=== PATIENT | male | born 1960 | race American Indian/Alaskan Native ===

== ENCOUNTER 2017-03-23 21:06 | Inpatient (IN) | payer OTHER ==
[2017-03-23] MEDS ORDERED: Iodixanol 320 MG/ML 100 ML BOTTLE IV ONE (21:16)
--- NOTE | 2017-03-23 21:36 | CT ---
EXAM: CT Head Without Intravenous Contrast EXAM DATE/TIME: 03/23/2017 9:08 PM CLINICAL HISTORY: 56 years old, male; Signs and symptoms; Alteration of consciousness; Transient alteration of awareness; Additional info: Code stroke TECHNIQUE: Axial computed tomography images of the head/brain without intravenous contrast. All CT scans at this facility use one or more dose reduction techniques, viz.: automated exposure control; ma/kV adjustment per patient size (including targeted exams where dose is matched to indication; i.e. head); or iterative reconstruction technique. COMPARISON: There are no prior studies for comparison. FINDINGS: Brain: Ventricles are normal in size and configuration. There is no midline shift. There is decrease attenuation in periventricular white matter. There is subtle decreased attenuation in the basal ganglia bilaterally left greater than right. There are no intra-axial or extra-axial mass lesions or hemorrhages. There are no abnormal fluid collections. Smith-white differentiation is maintained. Ventricles: See above. Bones: Cranial vault is intact. Soft tissues: There is minimal right frontal scalp swelling. Sinuses: There is no acute sinusitis. Ears and mastoids: Middle ears and mastoids are unremarkable Orbits: Orbital contents are unremarkable. IMPRESSION: Small vessel disease; age indeterminate decreased attenuation in basal ganglia; no bleed
[2017-03-23 21:44] LABS: BASO # 0.03 K/mm3 (0.0-2.0); BASO % 0.4 % (0.0-3.0); EOS % 0.2 % (1.5-5.0); GRAN # 6.68 (1.4-6.5); GRAN % 80.5 % (50.0-68.0); HEMATOCRIT 44.9 % (42.0-52.0); LYMPH # 1.1 (1.2-3.4); MEAN CORPUSCULAR HEMOGLOBIN 30.7 pg (25.0-35.0); MEAN CORPUSCULAR HGB CONC 34.1 g/dl (31.0-37.0); MONO # 0.5 (0.1-0.6); MONO % 5.9 % (1.0-6.0); RED CELL DISTRIBUTION WIDTH 13.3 % (11.5-14.5); WHITE BLOOD COUNT 8.3 10^3/ul (4.5-11.0)
[2017-03-23 21:55] LABS: ALB/GLOB RATIO 1.4 (1.1-1.8); ALKALINE PHOSPHATASE 60 U/L (38-126); ALT/SGPT 25 U/L (7-56); AST/SGOT 34 U/L (17-59); BILIRUBIN,TOTAL 0.7 mg/dL (0.2-1.3); BLOOD UREA NITROGEN 20 mg/dL (7-21); CALCIUM 9.4 mg/dL (8.4-10.5); CARBON DIOXIDE 19 mmol/L (21-33); CHLORIDE 105 mmol/L (98-107); CHOLESTEROL 217 mg/dL (130-200); GFR AFRICAN-AMERICAN 58; GLUCOSE,RANDOM 108 mg/dL (70-110); INR 1.06 (0.93-1.08); PARTIAL THROMBOPLASTIN TIME 25.6 Seconds (23.7-30.8); POTASSIUM 3.8 mmol/L (3.6-5.0); SODIUM 144 mmol/L (132-148); TOTAL PROTEIN 8.3 g/dL (5.8-8.3)
[2017-03-23 22:09] LABS: TROPONIN I < 0.01 ng/mL
--- NOTE | 2017-03-23 22:28 | EDPD ---
HPI Stroke - General Time Seen by Provider: 03/23/17 21:07 Chief Complaint: Weakness/Neurological Deficit Historian: Patient - History of Present Illness Narrative History of Present Illness (Free Text): 03/23/17 21:30 56 year old male, who denies any past medical history, presents to the emergency department by EMS in sudden onset left arm and left leg weakness began at 8:30pm. Patient states he was sitting at a restaurant and eating when symptoms began. Patient denies any trauma, chest pain, shortness of breath, blurry double vision, fever, chills, chest pain, shortness of breath, nausea, vomiting, diarrhea, urinary symptoms, back pain, neck pain, headache, dizziness , or any other complaints. Onset:: Sudden Context: Sitting (out at a reaturant eating ) Associated Symptoms: other (left arm and left leg weakness ) Relieved by: Nothing - Location Location: None Locate Right: Upper extremity (left arm weakness) Locate Left: Lower extremity (left leg weakness) rTPA Inclusion/Exclusion - Refusal of Treatment Patient Refused Treatment: No - Inclusion Criteria for Altepase Patient is 18 years or Older: Yes The Clinical Diagnosis of Ischemic Stroke That is Causing a Potentially Disabling Neurological Deficit: Yes Time of Onset is Well Established to be Less Than 270 Minute Before Treatment Would Begin: Yes Risk/Benefit Discussed With Patient/Family Member Present: Yes - Exclusion Criteria for Altepase Uncontrolled Hypertension at Time of Treatment (Systolic BP above 185 or Diastolic BP above 110 mmHg): No Past Medical History - Provider Review Nursing Documentation Reviewed: Yes - Psychiatric Hx Substance Use: No Family/Social History - Dr. Swan Nursing documentation reviewed.: Yes Allergies/Home Meds Allergies/Adverse Reactions: Allergies No Known Allergies Allergy (Verified 03/23/17 21:08) Home Medications: Home Meds Medication Instructions Recorded Confirmed No Known Home Med 03/23/17 03/23/17 Review of Systems - Physician Review All systems were reviewed & negative as marked: Yes - Review of Systems Constitutional: absent: Fevers, Other (Chills) Eyes: absent: Vision Changes (- blurry double vision ) Respiratory: absent: SOB Cardiovascular: absent: Chest Pain Gastrointestinal: absent: Diarrhea, Nausea, Vomiting Genitourinary Male: absent: Dysuria, Frequency, Hematuria Musculoskeletal: absent: Back Pain, Neck Pain Neurological: Other (left arm and left leg weakness ). absent: Headache, Dizziness ED Stroke Physical Exam Vital Signs Reviewed: Yes Vital Signs Temp Pulse Resp BP Pulse Ox 03/23/17 22:21 96 H 18 160/94 H 100 03/23/17 22:10 86 18 168/94 H 99 03/23/17 22:00 78 18 166/98 H 99 03/23/17 21:51 84 18 168/102 H 99 03/23/17 21:42 98.9 F 88 16 174/92 H 99 03/23/17 21:06 98.9 F 77 12 182/112 H 100 Temperature: Afebrile Blood Pressure: Hypertensive Pulse: Regular Respiratory Rate: Normal Appearance: Positive for: Well-Appearing, Non-Toxic, Comfortable Pain Distress: None Mental Status: Positive for: Alert and Oriented X 3 Finger Stick Blood Glucose: 118 - Systems Exam Head: Present: Atraumatic, Normocephalic, Other (slight facial asymmetric noted ) Pupils: Present: PERRL Extroacular Muscles: Present: EOMI Conjunctiva: Present: Normal Mouth: Present: Moist Mucous Membranes Neck: Present: Normal Range of Motion Respiratory/Chest: Present: Clear to Auscultation, Good Air Exchange. No: Respiratory Distress, Accessory Muscle Use Cardiovascular: Present: Regular Rate and Rhythm, Normal S1, S2. No: Murmurs Abdomen: Present: Normal Bowel Sounds. No: Tenderness, Distention, Peritoneal Signs Back: Present: GCS, CN, SP Upper Extremity: Present: Other (left upper extremity ab duction, no saturator tender strenfth left hand, minimal flection of the upper shoulder). No: Cyanosis, Edema Lower Extremity: Present: Other (Decreased left leg raise). No: Edema Neurologic: Present: Normal Sensory Function Skin: Present: Warm, Dry, Normal Color. No: Rashes Lymphatic: Present: OX3, NI, NC Psychiatric: Present: Alert, Oriented x 3, Normal Insight, Normal Concentration Medical Decision Making ED Course and Treatment: 03/23/17 21:28 Impression: 56 year old male presents onset left arm and leg weakness that began at 8:30PM. Plan: -- CT Head and Neck Bundle -- CT Head -- EKG -- Labs -- Chest X-ray -- Activase 100mg Inj -- Reassess and disposition Progress Notes: EKG shows Sinus Tachycardia at 146 BPM with wide axis deviation. Interpreted by me. CXR Impression: As read by me, no acute processes. EXAM: CT Head Without Intravenous Contrast Dictated and Authenticated by: Marcelina Sierra MD 03/23/2017 9:36 PM IMPRESSION: Small vessel disease; age indeterminate decreased attenuation in basal ganglia; no bleed EXAM:CT Angiography Head With Intravenous Contrast Dictated and Authenticated by: Lucia Valencia MD 03/23/2017 10:35 PM IMPRESSION: Tortuous basilar artery. No acute vascular occlusion identified EXAM:CT Angiography Neck With Intravenous Contrast Dictated and Authenticated by: Lucia Valencia MD 03/23/2017 10:35 PM IMPRESSION: No acute findings. Spoke to Dr. Maegan Vieira and reviewed case before and after CT scan and recommended tPA and admission to ICU. Discussed case with Dr. [place] the clock maker who is aware and agrees with the plan. Accepts patients into service. Patient will be admitted to ICU. - Lab Interpretations Lab Results: 03/23/17 21:30 03/23/17 21:30 Lab Results 03/23/17 21:30: Blood Type B POSITIVE, Antibody Screen Negative, BBK History Checked No verified bt 03/23/17 21:30: Sodium 144, Potassium 3.8, Chloride 105, Carbon Dioxide 19 L, Anion Gap 24 H, BUN 20, Creatinine 1.5 H, Est GFR ( Amer) 58, Est GFR ( Non-Af Amer) 48, Random Glucose 108, Calcium 9.4, Total Bilirubin 0.7, AST 34, ALT 25, Alkaline Phosphatase 60, Troponin I < 0.01, Total Protein 8.3, Albumin 4.9 H, Globulin 3.5, Albumin/Globulin Ratio 1.4, Triglycerides 74, Cholesterol 217 H, LDL Cholesterol Direct 105, HDL Cholesterol 118 H 03/23/17 21:30: PT 11.4, INR 1.06, APTT 25.6 03/23/17 21:30: WBC 8.3, RBC 4.99, Hgb 15.3, Hct 44.9, MCV 90.0, MCH 30.7, MCHC 34.1, RDW 13.3, Plt Count 315, MPV 10.0, Gran % 80.5 H, Lymph % (Auto) 13.0 L, [place] % (Auto) 5.9, Eos % (Auto) 0.2 L, Baso % (Auto) 0.4, Gran # 6.68 H, Lymph # 1.1 L, [place]he # 0.5, Eos # 0.0, Baso # 0.03 I have reviewed the lab results: Yes - RAD Interpretation Radiology Orders: 03/23/17 21:08 HEAD W/O (CODE STROKE) [CT] Stat 03/23/17 21:10 CHEST PORTABLE [RAD] Stat 03/23/17 21:30 CTA HEAD & NECK BUNDLE [CT] Stat - EKG Interpretation Interpreted by ED Physician: Yes Type: 12 lead EKG - Medication Orders Current Medication Orders: Discontinued Medications Alteplase, Recombinant (Activase 100 Mg Inj) 63.5 mg IV ONCE ONE Stop: 03/23/17 21:46 Last Admin: 03/23/17 22:07 Dose: 63.5 mg eMAR Start Stop Document 03/23/17 22:07 OCS (Rec: 03/23/17 22:07 OCS [id number]) Intravenous Solution Start Date 03/23/17 Start Time 22:05 Alteplase, Recombinant (Activase 100 Mg Inj) 7.06 mg IV ONCE ONE Stop: 03/23/17 21:46 Last Admin: 03/23/17 22:05 Dose: 7.06 mg eMAR Start Stop Document 03/23/17 22:05 OCS (Rec: 03/23/17 22:09 OCS [id number]) Intravenous Solution Start Date 03/23/17 Start Time 22:05 Iodixanol (Visipaque 320 Mg/Ml 100 Ml) Confirm Administered Dose 100 ml IV .STK- MED ONE Stop: 03/23/17 21:17 - Scribe Statement The provider has reviewed the documentation as recorded by the Scribe Lenard Orellana All medical record entries made by the Scribe were at my direction and personally dictated by me. I have reviewed the chart and agree that the record accurately reflects my personal performance of the history, physical exam, medical decision making, and the department course for this patient. I have also personally directed, reviewed, and agree with the discharge instructions and disposition. NIHSS Scale ([place]) Time Performed: 21:05 - How Severe is the Stoke Baseline Level of Consciousness: 0=Alert LOC to Questions: 0=Both comments correct LOC to commands: 0=Obeys both correctly Best Gaze: 0=Normal Visual: 0=No visual loss Facial: 1=Minor asymmetry Motor Arm - Left: 3=No effort against gravity (falls immediately) Motor Arm - Right: 0=No drift Motor Leg - Left: 2=Falls before 5 sec Motor Leg - Right: 0=No drift Limb Ataxia: 0=Absent Sensory: 0=Normal Best Language: 0=No aphasia Dysarthia: 0=Normal articulation Extinction & Inattention (Neglect): 0=Normal, no object Score: 6 Risk Level: Mod Stroke Risk Disposition/Present on Arrival - Present on Arrival Any Indicators Present on Arrival: No History of DVT/PE: No History of Uncontrolled Diabetes: No Urinary Catheter: No History of Decub. Ulcer: No History Surgical Site Infection Following: None - Disposition Have Diagnosis and Disposition been Completed?: Yes Diagnosis: Ischemic stroke, Received intravenous tissue plasminogen activator (tPA) in emergency department Disposition: HOSPITALIZED Disposition Time: 22:10 Patient Plan: Admission, ICU Condition: CRITICAL ED Critical Care Documentation - Critical Care Total Time (mins): 60 Documented critical care: time excludes all time spent performing seperately billable procedures.
--- NOTE | 2017-03-23 22:35 | CT ---
EXAM: CT Angiography Head With Intravenous Contrast CLINICAL HISTORY: 56 years old, male; Signs and symptoms; Cognitive deficit; Altered mental status; Additional info: CVA TECHNIQUE: Axial computed tomographic angiography images of the head with intravenous contrast using CT angiography protocol. All CT scans at this facility use one or more dose reduction techniques, viz.: automated exposure control; ma/kV adjustment per patient size (including targeted exams where dose is matched to indication; i.e. head); or iterative reconstruction technique. MIP reconstructed images were created and reviewed. Coronal and sagittal reformatted images were created and reviewed. CONTRAST: 100 mL of VISIPAQUE 320 administered intravenously. COMPARISON: No relevant prior studies available. FINDINGS: The vertebral arteries are patent bilaterally. The basilar artery is tortuous although patent without significant stenosis or occlusion. The posterior cerebral arteries are patent. The P2 segment of the right posterior cerebral artery is largely supplied by the posterior communicating artery. The visualized internal carotid arteries are normal. The anterior and middle cerebral arteries are patent. Mild sinus disease. IMPRESSION: Tortuous basilar artery. No acute vascular occlusion identified EXAM: CT Angiography Neck With Intravenous Contrast EXAM DATE/TIME: 03/23/2017 9:10 PM CLINICAL HISTORY: 56 years old, male; Signs and symptoms; Cognitive deficit; Altered mental status; Additional info: CVA TECHNIQUE: Axial computed tomographic angiography images of the neck with intravenous contrast using CT angiography protocol. All CT scans at this facility use one or more dose reduction techniques, viz.: automated exposure control; ma/kV adjustment per patient size (including targeted exams where dose is matched to indication; i.e. head); or iterative reconstruction technique. MIP reconstructed images were created and reviewed. Coronal and sagittal reformatted images were created and reviewed. CONTRAST: 100 mL of VISIPAQUE 320 administered intravenously. COMPARISON: CT - HEAD W/O (CODE STROKE) 03/23/2017 9:04:53 PM FINDINGS: The common carotid arteries are normal bilaterally without significant stenosis or occlusion. The visualized internal carotid arteries are normal without significant stenosis or occlusion. The vertebral arteries are normal without evidence of stenosis or occlusion. The soft tissues of the neck appear normal. The airway is patent. Minimal degenerative changes C5-6. IMPRESSION: No acute findings.
--- NOTE | 2017-03-23 23:36 | CP.PCM.HP ---
<Vika Charles - Last Filed: 03/23/17 23:33> History of Present Illness - History of Present Illness History of Present Illness: CC: " I felt numb in my left upper and lower extremity". Patient is a 56 y/o M with PMH of 40 pack a year history, alcohol abuse presenting with numbness and weakness of the left upper and lower extremities. Patient states today [place], he felt numb in his left upper extremity and lower extremity, accompanied by weakness, diaphoresis and shaking of his right upper extremity. Patient states he felt like falling, but didn't fall, denies LOC, denies headache during the episode. Patient states he got out of the train and while walking down the stairs he felt diaphoretic again with shakes, and had bowel incontinent, denies urine incontinence. Patient states he went to a [employer] store to clean himself up, and then headed to a restaurant for his baby's shower. While in the restaurant, he had difficulty feeding himself, that's when his girlfriend called 9:11. Furthermore, patient added he had headache on/off for the past few days, temporarly releived with OTC NSAIDS. However no headaches today. Patient also states his BP is usually "a little" high, however patient has never seen a doctor for it. Last time patient saw a doctor was for a dental work , which was months ago. Patient states prior to this he has no difficulties ambulating, no dyspnea on exertion, no chest pain, no SOB, was never told he had any childhood heart defect, doesn't know if anyone in the family has hypercoagulable disease. Patient denies any prior histories of seizures or strokes. In the ED, patient had 0/5 motor strength and ROM in the upper left extremity and left drip on the left lower extremities. BP was 182/112. Code stroke was activated, patient had CT head w/o contrast demonstrating small vessel disease, age indeterminate decreased attenuation in the basal ganglia. ED contacted Dr Rivera, and recommended TPA. Patient also had CTA head and neck, and as per Dr Farooq, video images of the CT were sent to [facility] for possible coiling, however was deemed to be likely due to small vessel disease. Patient to be admitted to ICU for further monitoring. On ekg, patient was NSR, with LVH, and LAE. PMH: Denies PSH: Denies FMH: mom and dad are , not sure if they had any illnesses. Social: 40 pack a year history, drinks 1 pint of ryan a day, all his life, last drink was yesterday. Denies illicit drug use. 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 Allergy: Denies Home meds: Denies. Present on Admission - Present on Admission Any Indicators Present on Admission: No History of DVT/PE: No History of Uncontrolled Diabetes: No Urinary Catheter: No Decubitus Ulcer Present: No Review of Systems - Constitutional Constitutional: Chills, Fatigue, Lethargy, Weakness. absent: Fever, Frequent Falls, Headache, Night Sweats, Snoring, Sleep Apnea - EENT Eyes: absent: Blurred Vision, Change in Vision, Pain, Sees Flashes, Spots in Vision, Loss of Vision Ears: Disequilibrium, Dizziness. absent: Decreased Hearing, Tinnitus Nose/Mouth/Throat: absent: Change in Voice, Sore Throat - Cardiovascular Cardiovascular: Lightheadedness. absent: Chest Pain, Chest Pain at Rest, Chest Pain with Activity, Claudication, Dyspnea, Edema, Leg Edema, Palpitations, Paroxysmal Nocturnal Dyspnea, Pedal Edema, Rapid Heart Rate, Slow Heart Rate, Syncope - Respiratory Respiratory: absent: Cough, Wheezing, Snoring, Stridor, Chest Congestion, Excessive Mucous Production - Gastrointestinal Gastrointestinal: absent: Abdominal Pain, Bloating, Constipation, Nausea, Vomiting - Genitourinary Genitourinary: absent: Dysuria, Hematuria, Urinary Hesitance, Urinary Urgency, Freq UTI - Musculoskeletal Musculoskeletal: Abnormal Gait, Limited Range of Motion, Muscle Weakness, Numbness, Tingling. absent: Atrophy, Back Pain, Muscle Cramps, Stiffness - Integumentary Integumentary: Dry Skin. absent: Skin Pain, Wounds - Neurological Neurological: Abnormal Movements, Disequilibrium, Dizziness, Numbness, Focal Weakness, Lack of Coordination, Sensory Deficit, Tingling, Weakness. absent: Abnormal Hearing, Abnormal Speech, Behavioral Changes, Confusion, Convulsions, Frequent Falls, Headaches, Loss of Vision, Memory Loss, Paresthesias, Radicular Pain, Restless Legs, Syncope, Tremor, Vertigo - Psychiatric Psychiatric: absent: Anxiety, Confusion, Depression - Endocrine Endocrine: Fatigue. absent: Change in Body Appearance, Palpitations - Hematologic/Lymphatic Hematologic: absent: Lymphadenopathy Past Patient History - Infectious Disease Hx of Infectious Diseases: None - Tetanus Immunizations Tetanus Immunization: Unknown - Past Medical History & Family History Past Medical History?: Yes - Past Social History Smoking Status: Heavy Smoker > 10 Cigarettes Daily Alcohol: > 2 Drinks/Day Drugs: Denies Home Situation {Lives}: Alone - PSYCHIATRIC Hx Substance Use: No Meds Allergies/Adverse Reactions: Allergies Allergy/AdvReac Type Severity Reaction Status Date / Time No Known Allergies Allergy Verified 03/23/17 21:08 Physical Exam - Constitutional Appears: No Acute Distress - Head Exam Head Exam: ATRAUMATIC, NORMAL INSPECTION, NORMOCEPHALIC - Eye Exam Eye Exam: EOMI, Normal appearance, PERRL. absent: Nystagmus, Scleral icterus Pupil Exam: Irregular, NORMAL ACCOMODATION, Unequal (left sided droop. gaze is downward and in.). absent: Miosis, Mydriatic (on the right, abnormal accomodation on the left. ) - ENT Exam ENT Exam: Mucous Membranes Moist - Neck Exam Neck exam: Positive for: Full Rom, Normal Inspection. Negative for: Lymphadenopathy, Meningismus, Tenderness, Thyromegaly - Respiratory Exam Respiratory Exam: Clear to Auscultation Bilateral, NORMAL BREATHING PATTERN. absent: Rales, Rhonchi, Wheezes, Respiratory Distress, Stridor - Cardiovascular Exam Cardiovascular Exam: REGULAR RHYTHM, RRR, +S1, +S2. absent: Bradycardia, Tachycardia, Gallop, Irregular Rhythm, JVD, Rubs, Systolic Murmur - GI/Abdominal Exam GI & Abdominal Exam: Normal Bowel Sounds, Soft. absent: Diminished Bowel Sounds , Distended, Firm, Guarding, Hernia, Pulsatile Mass, Rebound, Tenderness - Extremities Exam Extremities exam: Positive for: normal inspection, pedal pulses present. Negative for: pedal edema, tenderness - Back Exam Back exam: NORMAL INSPECTION. absent: paraspinal tenderness, rash noted, tenderness - Neurological Exam Neurological exam: Alert, Oriented x3, Reflexes Normal Additional comments: Patient is alert and awake, able to speak in full sentences, able to respond to all the questions. and is a&ox3. + Facial asymmetry, masseter muscle is strong b/l. + left sided facial droop, decreased in sensation on the left forehead, and right lower face. Normal sensation on the right upper face and left lower face. No tongue atrophy, + tongue deviation to the right. + left sided peripheral visual field defect. Diminished sensation to dull and sharp objects on the left upper and left lower extremities. Normal on the right. Negative babinski. 1/5 Motor strength and ROM on the left upper extremities, normal 5/5 on the right. + Pronator drift after 10 sec on the left, normal on the right. Reflexes are brisk throughout. No tremors noted, no muscle rigidity. - Psychiatric Exam Psychiatric exam: Normal Affect, Normal Mood - Skin Skin Exam: Dry, Warm Additional comments: Old abrasions on the bid toes. Results - Vital Signs Recent Vital Signs: Last Vital Signs Temp 98.9 F 03/23/17 21:42 Pulse 92 H 03/23/17 22:59 Resp 18 03/23/17 22:59 BP 168/98 H 03/23/17 22:59 Pulse Ox 99 03/23/17 22:59 - Labs Result Diagrams: 03/23/17 21:30 03/23/17 21:30 Labs: Laboratory Results - last 24 hr 03/23/17 03/23/17 03/23/17 10:35 21:30 21:30 WBC 8.3 RBC 4.99 Hgb 15.3 Hct 44.9 MCV 90.0 MCH 30.7 MCHC 34.1 RDW 13.3 Plt Count 315 MPV 10.0 Gran % 80.5 H Lymph % (Auto) 13.0 L [place] % (Auto) 5.9 Eos % (Auto) 0.2 L Baso % (Auto) 0.4 Gran # 6.68 H Lymph # 1.1 L [place] # 0.5 Eos # 0.0 Baso # 0.03 PT 11.4 INR 1.06 APTT 25.6 Sodium Potassium Chloride Carbon Dioxide Anion Gap BUN Creatinine Est GFR ( Amer) Est GFR (Non-Af Amer) Random Glucose Calcium Total Bilirubin AST ALT Alkaline Phosphatase Troponin I Total Protein Albumin Globulin Albumin/Globulin Ratio Triglycerides Cholesterol LDL Cholesterol Direct HDL Cholesterol Blood Type Blood Type Confirm B POSITIVE Antibody Screen BBK History Checked 03/23/17 03/23/17 21:30 21:30 WBC RBC Hgb Hct MCV MCH MCHC RDW Plt Count MPV Gran % Lymph % (Auto) [place] % (Auto) Eos % (Auto) Baso % (Auto) Gran # Lymph # [place] # Eos # Baso # PT INR APTT Sodium 144 Potassium 3.8 Chloride 105 Carbon Dioxide 19 L Anion Gap 24 H BUN 20 Creatinine 1.5 H Est GFR ( Amer) 58 Est GFR (Non-Af Amer) 48 Random Glucose 108 Calcium 9.4 Total Bilirubin 0.7 AST 34 ALT 25 Alkaline Phosphatase 60 Troponin I < 0.01 Total Protein 8.3 Albumin 4.9 H Globulin 3.5 Albumin/Globulin Ratio 1.4 Triglycerides 74 Cholesterol 217 H LDL Cholesterol Direct 105 HDL Cholesterol 118 H Blood Type B POSITIVE Blood Type Confirm Antibody Screen Negative BBK History Checked No verified bt Assessment & Plan - Assessment and Plan (Free Text) Assessment: 56 y/o with h/o alcohol abuse and heavy tobacco abuse brought in by EMS with weakness and numbness of the left upper and lower extremities. Patient was suspected to have stroke, code stroke was called, CT head w/o contrast was negative for hemorrhage. Patient was giving TPA with some improvement in the extremities ROM and is currently being transferred to ICU for further monitoring. Plan: 1) Left upper and lower extremities weakness likely ischemic CVA 2nd to uncontrolled hypertension. - R/O Seizure disorders, Pablo's paralysis - Less likely bacterial encephalitis, no AMS, no fevers, wbc normal. - R/o Wernicke's encephalitis, r/o hyperkalemic periodic paralysis - CT head revealing age indeterminate basal ganglia attenuation and small vessel disease. - Will obtain MRI in the AM, will repeat CT in the mean time if mental status worsens. - Will r/o embolic CVA by obtain echo with bubble study and LE U/S - Patient had CTA of the neck, pending read. - Neuro consulted. - s/p TPA - will keep head of bed elevated above 30 degrees to prevent aspiration. - NPO until speech and swallow evaluation. - PT/OT ordered. - Neuro check q1, vital signs q1, fall and seizure precaution. - Will avoid anticoags in the first 24-48 hours, follow neuro recommendation. - Lopressor ivp for SBP above 160. Hold for HR below 60's. - TSH, hgba1c, lipid profile were sent, pending - Unable to send hypercoagulable work up due to the fact mynor patient already got TPA. 2) Renal injury-likely pre-renal, r/o post renal versus intra renal. - No baseline creatinine. - Will fluid challenge with NS - will obtain urine lytes. - Bladder doesn't appear to be distended. - Consider nephro consult if no improvement. 3) Alcohol abuse - No signs of withdrawal currently - [facility] protocol - Ativan prn q6 for now - Will give im thiamine and folic acid. - Consider adding librium/geodon based on [facility] protocol tomorrow. - Tox screen including alcohol level pending. 4) Tobacco abuse - Nicotine patch ordered. 5) GI/DVT prophylaxis: Protonix and SCDs. Patient seen, examined and case discussed with Dr Spain. - Date & Time Date: 03/24/17 Time: 23:00 NIHSS Stroke Scale 2 - Date/Time Evaluation Performed Date Performed: 03/23/17 Time Performed: 22:30 When Was NIHSS Performed: Post tPA - How Severe is the Stroke Level of Consciousness: 1=Drowsy LOC to Questions: 0=Both comments correct LOC to commands: 0=Obeys both correctly Best Gaze: 1=Partial gaze palsy Visual: 1=Partial hemianopia Facial: 2=Partial (lower face paralysis) Motor Arm - Left: 3=No effort against gravity (falls immediately) Motor Arm - Right: 0=No drift Motor Leg - Left: 1=Drift before 5 sec Motor Leg - Right: 0=No drift Limb Ataxia: 1=Present Upper or Lower Sensory: 1=Mild to moderate loss Best Language: 0=No aphasia Dysarthia: 0=Normal articulation Extinction & Inattention (Neglect): 1=Partial neglect (mild katherine-attention) Score: 12 Severity Of Stroke: 5-15 = Moderate Stroke <Tay Spain MD - Last Filed: 03/25/17 08:56> Results - Vital Signs Recent Vital Signs: Last Vital Signs Temp 98.2 F 03/25/17 06:31 Pulse 64 03/25/17 06:20 Resp 16 03/25/17 06:20 BP 123/85 03/25/17 06:00 Pulse Ox 99 03/25/17 06:20 - Labs Result Diagrams: 03/25/17 07:00 03/25/17 07:00 Labs: Laboratory Results - last 24 hr 03/24/17 03/24/17 03/24/17 10:53 10:55 10:57 WBC RBC Hgb Hct MCV MCH MCHC RDW Plt Count MPV Gran % Lymph % (Auto) [place] % (Auto) Eos % (Auto) Baso % (Auto) Gran # Lymph # [place] # Eos # Baso # Sodium Potassium Chloride Carbon Dioxide Anion Gap BUN Creatinine Est GFR ( Amer) Est GFR (Non-Af Amer) Random Glucose Calcium Urine Color Yellow Urine Appearance Clear Urine pH 6.0 Ur Specific Roe 1.015 Urine Protein Trace H Urine Glucose (UA) Negative Urine Ketones 15 H Urine Blood Moderate H Urine Nitrate Negative Urine Bilirubin Negative Urine Urobilinogen 0.2 Ur Leukocyte Esterase Negative Urine RBC 25 - 30 Urine WBC 1 - 3 Ur Epithelial Cells 0 - 2 Urine Bacteria Few Ur Random Creatinine 263 Ur Random Sodium 113 Urine Opiates Screen Negative Urine Methadone Screen Negative Ur Barbiturates Screen Negative Ur Phencyclidine Scrn Negative Ur Amphetamines Screen Negative U Benzodiazepines Scrn Negative U Oth Cocaine Metabols Positive H U Cannabinoids Screen Positive H 03/25/17 03/25/17 03/25/17 01:40 01:40 07:00 WBC 5.7 D RBC 4.70 Hgb 14.4 Hct 41.5 L MCV 88.3 MCH 30.6 MCHC 34.7 RDW 13.1 Plt Count 286 MPV 10.0 Gran % 53.8 Lymph % (Auto) 30.2 [place] % (Auto) 10.9 H Eos % (Auto) 4.7 Baso % (Auto) 0.4 Gran # 3.06 Lymph # 1.7 [place] # 0.6 Eos # 0.3 Baso # 0.02 Sodium Potassium Chloride Carbon Dioxide Anion Gap BUN Creatinine Est GFR ( Amer) Est GFR (Non-Af Amer) Random Glucose Calcium Urine Color Dark yellow Urine Appearance Slight-cloudy Urine pH 6.0 Ur Specific Roe 1.010 Urine Protein Negative Urine Glucose (UA) Negative Urine Ketones Negative Urine Blood Small H Urine Nitrate Negative Urine Bilirubin Negative Urine Urobilinogen 0.2 Ur Leukocyte Esterase Negative Urine RBC 1 - 3 Urine WBC 0 - 2 Ur Epithelial Cells 0 - 2 Urine Bacteria Ur Random Creatinine Ur Random Sodium Urine Opiates Screen Negative Urine Methadone Screen Negative Ur Barbiturates Screen Negative Ur Phencyclidine Scrn Negative Ur Amphetamines Screen Negative U Benzodiazepines Scrn Negative U Oth Cocaine Metabols Positive H U Cannabinoids Screen Positive H 09/25/17 07:00 WBC RBC Hgb Hct MCV MCH MCHC RDW Plt Count MPV Gran % Lymph % (Auto) [place] % (Auto) Eos % (Auto) Baso % (Auto) Gran # Lymph # [place] # Eos # Baso # Sodium 140 Potassium 3.1 L Chloride 104 Carbon Dioxide 27 Anion Gap 12 BUN 14 Creatinine 1.0 Est GFR ( Amer) > 60 Est GFR (Non-Af Amer) > 60 Random Glucose 108 Calcium 8.8 Urine Color Urine Appearance Urine pH Ur Specific Roe Urine Protein Urine Glucose (UA) Urine Ketones Urine Blood Urine Nitrate Urine Bilirubin Urine Urobilinogen Ur Leukocyte Esterase Urine RBC Urine WBC Ur Epithelial Cells Urine Bacteria Ur Random Creatinine Ur Random Sodium Urine Opiates Screen Urine Methadone Screen Ur Barbiturates Screen Ur Phencyclidine Scrn Ur Amphetamines Screen U Benzodiazepines Scrn U Oth Cocaine Metabols U Cannabinoids Screen Attending/Attestation - Attestation I have personally seen and examined this patient.: Yes I have fully participated in the care of the patient.: Yes I have reviewed all pertinent clinical information: Yes Notes (Text): -I agree with the above H&P completed by the resident physician with the following additions and/or changes: The patient is a 56 year old man with a history of HTN and chronic ETOH abuse who is being admitted to the ICU for acute ischemic CVA, s/p t-PA given in the ED. Neurology has been consulted. A CT-angio of the brain was negative for aneurysm. An MRI-brain, bilateral carotid U/S, 2D-echo, HgA1c, Lipids and urine drug screen have all been ordered. Hourly neuro checks will be monitored in the ICU overnight. Repeat CT-head in AM.
[2017-03-23] MEDS: Metoprolol 1 mg/ml Inj IVP PRN (23:49)
[2017-03-24 00:19] LABS: ALCOHOL SERUM < 10 mg/dL (0-10)
[2017-03-24] MEDS: Sodium Chloride 0.9% 1,000 ML IV SCH ×2 (00:35→13:15)
[2017-03-24 00:49] LABS: THYROID STIMULATING HORMONE 0.22 mIU/mL (0.46-4.68)
[2017-03-24 02:20] VITALS: BMI 21.7
[2017-03-24] MEDS: Metoprolol 1 mg/ml Inj IVP PRN ×2 (04:48→09:11)
[2017-03-24 05:58] LABS: BLOOD UREA NITROGEN 21 mg/dL (7-21); CALCIUM 9.2 mg/dL (8.4-10.5); CARBON DIOXIDE 27 mmol/L (21-33); CHLORIDE 105 mmol/L (98-107); GFR AFRICAN-AMERICAN > 60; GLUCOSE,RANDOM 86 mg/dL (70-110); POTASSIUM 3.9 mmol/L (3.6-5.0); SODIUM 144 mmol/L (132-148)
[2017-03-24 05:59] LABS: BASO # 0.04 K/mm3 (0.0-2.0); BASO % 0.5 % (0.0-3.0); EOS # 0.1 (0.0-0.7); EOS % 0.8 % (1.5-5.0); GRAN # 5.01 (1.4-6.5); GRAN % 66.6 % (50.0-68.0); HEMATOCRIT 42.2 % (42.0-52.0); LYMPH # 1.7 (1.2-3.4); LYMPH % 22.8 % (22.0-35.0); MEAN CELL VOLUME 89.2 fl (80.0-105.0); MEAN CORPUSCULAR HEMOGLOBIN 30.2 pg (25.0-35.0); MEAN CORPUSCULAR HGB CONC 33.9 g/dl (31.0-37.0); MEAN PLATELET VOLUME 9.9 fl (7.0-11.0); MONO # 0.7 (0.1-0.6); MONO % 9.3 % (1.0-6.0); RED CELL DISTRIBUTION WIDTH 13.2 % (11.5-14.5); WHITE BLOOD COUNT 7.5 10^3/ul (4.5-11.0)
[2017-03-24 06:02] LABS: INR 1.1 (0.93-1.08); PARTIAL THROMBOPLASTIN TIME 26.8 Seconds (23.7-30.8)
--- NOTE | 2017-03-24 08:24 | RAD ---
HISTORY: CVA COMPARISON: No prior. FINDINGS: LUNGS: There are low lung volumes. The lungs are clear. PLEURA: No significant pleural effusion identified, no pneumothorax apparent. CARDIOVASCULAR: Normal. OSSEOUS STRUCTURES: No significant abnormalities. VISUALIZED UPPER ABDOMEN: Normal. OTHER FINDINGS: None. IMPRESSION: No clear acute findings. Low lung volumes may be related to poor inspiratory effort.
[2017-03-24] MEDS ORDERED: Thiamine 100 mg/ml Inj IM SCH (10:00)
--- NOTE | 2017-03-24 10:36 | MRI ---
PROCEDURE: MRI BRAIN WITHOUT CONTRAST HISTORY: CVA COMPARISON: Noncontrast head CT from 03/23/2017 TECHNIQUE: Multiplanar, multisequence MR images of the brain were obtained without intravenous contrast enhancement. FINDINGS: HEMORRHAGE: None DWI: There are multiple areas of restricted diffusion in the right frontal cortex, subcortical white matter and centrum semiovale and tiny foci of restricted diffusion in the left parietal lobe. BRAIN PARENCHYMA: There are severe chronic microangiopathic changes. There are old lacunar infarctions in right centrum semiovale and left ortiz radiata. There is no mass, mass effect or abnormal extra-axial fluid collection. VENTRICLES: There is mild age-related global parenchymal volume loss and proportionate enlargement of the ventricles and cortical sulci. CRANIUM: There is normal bone marrow signal pattern. ORBITS: Grossly unremarkable. PARANASAL SINUSES/MASTOIDS: Mild mucosal thickening in the frontal sinuses and ethmoid air cells. Trace mastoid effusions. VASCULAR SYSTEM: Skull base flow voids intact. The intracranial vessels are enlarged and tortuous likely result of underlying hypertension. OTHER FINDINGS: None. IMPRESSION: 1. Multifocal acute infarctions in the right frontal lobe, subcortical white matter and centrum semiovale in the right MCA distribution. 2. Tiny areas of restricted diffusion in the left parietal lobe in the MCA distribution. 3. Multifocal acute infarctions in bilateral cerebral hemispheres, worse on the right suggest embolic etiology. 4. Severe chronic microangiopathic changes and mild age-related global parenchymal volume loss. Important findings were discussed with nurse Womack on 03/24/2017 at 10:30 a.m.
--- NOTE | 2017-03-24 10:48 | PN ---
HRIS MANAGER NOTE SUBJECTIVE: The patient is resting in bed, states that his left arm and leg seems to be much stronger this morning. No complaints of dizziness, headache. No nauseousness or vomiting. No shortness of breath, cough, wheezing, chest congestion, or chest pain. No fever or chills. PHYSICAL EXAMINATION: VITAL SIGNS: Note that his pulse of 68, respirations are 16, and BP is 163/106. The patient is afebrile. HEENT: Head is atraumatic and normocephalic. Eyes are reactive to light. Ears, nose and throat seemed to be within normal limits. NECK: Supple. No JVD. No thyroid enlargement. No lymph nodes. HEART: Has a regular rate and rhythm. Normal S1, S2. LUNGS: Reveal good breath sounds bilaterally. ABDOMEN: Soft and nontender. Normal bowel sounds. No organomegaly noted. GENITALIA: Deferred. RECTAL: Deferred. MUSCULOSKELETAL: No joint deformities. EXTREMITIES: Reveal no significant edema. NEUROLOGICAL: He still has some mild weakness on the left side of upper and lower extremities. LABORATORY DATA: As far as his laboratories are concern white count is 7.5, hemoglobin is 14.3, hematocrit 42.2 with platelets of 310,000. Sodium is 144, potassium 3.9, chloride 105, CO2 of 27 with a BUN of 21, creatinine of 1.3, and a glucose of 86. As far as his CT of the head, it is noted that there is a small vessel disease, age indeterminate and decrease attenuation in the basal ganglia and no bleed. IMPRESSION: This patient has history of EtOH abuse and heavy tobacco use, also presented with left-sided weakness. CT scan reveals that there is a stroke with cerebral ischemia. The patient was given TPA. The patient has uncontrolled hypertension as well. PLAN: We will continue with neuro checks. The patient has been placed now on blood pressure medications. Neuro is on consult and we will follow his laboratories closely and correct as needed. The patient will continue with Ativan p.r.n. and Librium as well. He is on Lipitor and Lopressor. The patient is getting a Nicotine patch and we will continue with multivitamin and vitamin D and Protonix. We will continue to treat aggressively along with the other consultants and the primary care doctor. Javier Doran MD [facility] # [id number]
[2017-03-24 10:59] LABS: URINE BILIRUBIN NEGATIVE (NEGATIVE); URINE BLOOD MODERATE (NEGATIVE); URINE GLUCOSE (UA) NEGATIVE (NEGATIVE); URINE KETONE 15 mg/dL (NEGATIVE); URINE LEUKOCYTE ESTERASE NEGATIVE Leu/uL (NEGATIVE); URINE PROTEIN TRACE mg/dL (<30 mg/dL); URINE UROBILINOGEN 0.2 E.U./dL (<1 E.U./dL)
[2017-03-24 11:00] LABS: URINE APPEARANCE CLEAR (CLEAR); URINE COLOR YELLOW (YELLOW)
[2017-03-24 11:10] LABS: URINE BACTERIA FEW (NEG); URINE EPITHELIAL CELLS 0 - 2 /hpf (0-5); URINE RBC 25 - 30 /hpf (0-2)
[2017-03-24] MEDS: Nicardipine 20 MG/200 ML 20 MG/200 ML BAG IV PRN ×4 (11:16→23:26)
--- NOTE | 2017-03-24 14:12 | CP.PCM.PN ---
<Igor Jin - Last Filed: 03/24/17 16:59> Subjective - Date & Time of Evaluation Date of Evaluation: 03/24/17 Time of Evaluation: 07:15 - Subjective Subjective: Igor Jin DO, PGY-1, Hospitalist Service Patient seen and examined at bedside. Patient reports difficulty initiating movement or having any strength in the left upper extremity. He reports some improvement of the left lower extremity motor. Objective - Vital Signs/Intake and Output Vital Signs (last 24 hours): Temp Pulse Resp BP Pulse Ox 98.6 F 87 17 152/79 H 97 03/23/17 23:30 03/24/17 12:40 03/24/17 12:40 03/24/17 12:37 03/24/17 12:40 Intake and Output: 03/24/17 03/24/17 06:59 18:59 Intake Total 450 Balance 450 - Medications Medications: Current Medications Atorvastatin Calcium (Lipitor) 40 mg PO DIN [facility] Chlordiazepoxide (Librium) 25 mg PO Q8 PRN; Protocol PRN Reason: Anxiety Last Admin: 03/24/17 08:18 Dose: 25 mg Folic Acid (Folic Acid) 1 mg PO DAILY [facility] Sodium Chloride (Sodium Chloride 0.9%) 1,000 mls @ 75 mls/hr IV .[id number] [facility] Last Admin: 03/24/17 00:35 Dose: 75 mls/hr Nicardipine HCl (Cardene Iv Premix) 20 mg in 200 mls @ 50 mls/hr IV .Q4H PRN; Protocol; 5 MG/HR PRN Reason: TITRATE PER MD ORDER Last Admin: 03/24/17 11:16 Dose: 5 mg/hr, 50 mls/hr Labetalol HCl (Trandate) 100 mg PO BID [facility] Last Admin: 03/24/17 09:12 Dose: 100 mg Lorazepam (Ativan) 1 mg IVP Q6 PRN; Protocol PRN Reason: Symptoms of alcohol withdrawl Metoprolol Tartrate (Lopressor) 5 mg IVP Q4H PRN PRN Reason: Systolic Blood Pressure Last Admin: 03/24/17 09:11 Dose: 5 mg Multivitamins/Minerals (Therapeutic-M Tab) 1 tab PO 0800 [facility] Nicotine (Nicoderm Cq) 1 patch TD DAILY [facility] Last Admin: 03/24/17 09:11 Dose: 1 patch Ondansetron HCl (Zofran Inj) 4 mg IVP Q6 PRN PRN Reason: Nausea/Vomiting Pantoprazole Sodium (Protonix Inj) 40 mg IVP DAILY [facility] Last Admin: 03/24/17 09:12 Dose: 40 mg Thiamine HCl (Vitamin B1 Tab) 100 mg PO DAILY [facility] - Labs Labs: 03/24/17 05:00 03/24/17 05:00 PT 11.9 Seconds (9.9-11.8) H 03/24/17 05:00 INR 1.10 (0.93-1.08) H 03/24/17 05:00 APTT 26.8 Seconds (23.7-30.8) 03/24/17 05:00 - Head Exam Additional comments: - Constitutional Appears: No Acute Distress - Head Exam Head Exam: ATRAUMATIC, NORMAL INSPECTION, NORMOCEPHALIC - Eye Exam Eye Exam: EOMI, Normal appearance, PERRL. absent: Nystagmus, Scleral icterus Pupil Exam: Irregular, NORMAL ACCOMODATION, Unequal (left sided droop. gaze is downward and in.). absent: Miosis, Mydriatic (on the right, abnormal accomodation on the left. ) - ENT Exam ENT Exam: Mucous Membranes Moist - Neck Exam Neck exam: Positive for: Full Rom, Normal Inspection. Negative for: Lymphadenopathy, Meningismus, Tenderness, Thyromegaly - Respiratory Exam Respiratory Exam: Clear to Auscultation Bilateral, NORMAL BREATHING PATTERN. absent: Rales, Rhonchi, Wheezes, Respiratory Distress, Stridor - Cardiovascular Exam Cardiovascular Exam: REGULAR RHYTHM, RRR, +S1, +S2. absent: Bradycardia, Tachycardia, Gallop, Irregular Rhythm, JVD, Rubs, Systolic Murmur - GI/Abdominal Exam GI & Abdominal Exam: Normal Bowel Sounds, Soft. absent: Diminished Bowel Sounds , Distended, Firm, Guarding, Hernia, Pulsatile Mass, Rebound, Tenderness - Extremities Exam Extremities exam: Positive for: normal inspection, pedal pulses present. Negative for: pedal edema, tenderness - Back Exam Back exam: NORMAL INSPECTION. absent: paraspinal tenderness, rash noted, tenderness - Neurological Exam - Eye Exam Additional comments: - Neurological Exam Neurological exam: Alert, Oriented x3, Reflexes Normal Additional comments: Patient is alert and awake, able to speak in full sentences, able to respond to all the questions. and is a&ox3. + Facial asymmetry, masseter muscle is strong b/l. + left sided facial droop, decreased in sensation on the left forehead, and right lower face. Normal sensation on the right upper face and left lower face. No tongue atrophy, + tongue deviation to the right. + left sided peripheral visual field defect. Diminished sensation to dull and sharp objects on the left upper and left lower extremities. Normal on the right. Negative babinski. 1/5 Motor strength and ROM on the left upper extremities, normal 5/5 on the right. + Pronator drift after 10 sec on the left, normal on the right. Reflexes are brisk throughout. No tremors noted, no muscle rigidity. - Psychiatric Exam Psychiatric exam: Normal Affect, Normal Mood - Skin Skin Exam: Dry, Warm Additional comments: Old abrasions on the bid toes. Assessment and Plan - Assessment and Plan (Free Text) Assessment: 56 y/o with h/o alcohol abuse and heavy tobacco abuse brought in by EMS with weakness and numbness of the left upper and lower extremities. Patient was suspected to have stroke, code stroke was called, CT head w/o contrast was negative for hemorrhage. Patient was giving TPA with some improvement in the extremities ROM and is currently being transferred to ICU for further monitoring. Plan: 1) Left upper and lower extremities weakness likely ischemic CVA 2nd to uncontrolled hypertension. - R/O Seizure disorders, Pablo's paralysis - Less likely bacterial encephalitis, no AMS, no fevers, wbc normal. - R/o Wernicke's encephalitis, r/o hyperkalemic periodic paralysis - CT head revealing age indeterminate basal ganglia attenuation and small vessel disease. - Will obtain MRI in the AM, will repeat CT in the mean time if mental status worsens. - Will r/o embolic CVA by obtain echo with bubble study and LE U/S - Patient had CTA of the neck, pending read. - Neuro consulted. - s/p TPA - will keep head of bed elevated above 30 degrees to prevent aspiration. - NPO until speech and swallow evaluation. - PT/OT ordered. - Neuro check q1, vital signs q1, fall and seizure precaution. - Will avoid anticoags in the first 24-48 hours, follow neuro recommendation. - Lopressor ivp for SBP above 160. Hold for HR below 60's. - TSH, hgba1c, lipid profile were sent, pending - Unable to send hypercoagulable work up due to the fact mynor patient already got TPA. - UDS - HHD - Labetalol 100 mg BID 2) Renal injury-likely pre-renal, r/o post renal versus intra renal. - No baseline creatinine. - Will fluid challenge with NS - will obtain urine lytes. - Bladder doesn't appear to be distended. - Consider nephro consult if no improvement. 3) Alcohol abuse - Librium 25 mg q8h - CIWA protocol - Ativan prn q6 for now - thiamine and folic acid. - Tox screen including alcohol level pending. 4) Tobacco abuse - Nicotine patch ordered. 5) GI/DVT prophylaxis: Protonix and SCDs. <Jamilah Duarte - Last Filed: 03/24/17 18:36> Objective - Vital Signs/Intake and Output Vital Signs (last 24 hours): Temp Pulse Resp BP Pulse Ox 98.6 F 89 20 159/85 H 95 03/23/17 23:30 03/24/17 18:00 03/24/17 18:00 03/24/17 18:00 03/24/17 18:00 Intake and Output: 03/24/17 03/24/17 06:59 18:59 Intake Total 450 2375 Output Total 1050 Balance 450 1325 - Medications Medications: Current Medications Amlodipine Besylate (Norvasc) 5 mg PO DAILY [facility] Last Admin: 03/24/17 17:14 Dose: 5 mg Atorvastatin Calcium (Lipitor) 40 mg PO DIN [facility] Last Admin: 03/24/17 17:13 Dose: 40 mg Chlordiazepoxide (Librium) 25 mg PO Q8 PRN; Protocol PRN Reason: Anxiety Last Admin: 03/24/17 17:13 Dose: 25 mg Folic Acid (Folic Acid) 1 mg PO DAILY [facility] Last Admin: 03/24/17 14:13 Dose: 1 mg Sodium Chloride (Sodium Chloride 0.9%) 1,000 mls @ 75 mls/hr IV .[id number] [facility] Last Admin: 03/24/17 13:15 Dose: 75 mls/hr Nicardipine HCl (Cardene Iv Premix) 20 mg in 200 mls @ 50 mls/hr IV .Q4H PRN; Protocol; 5 MG/HR PRN Reason: TITRATE PER MD ORDER Last Admin: 03/24/17 15:26 Dose: 5 mg/hr, 50 mls/hr Labetalol HCl (Trandate) 200 mg PO Q12H [facility] Last Admin: 03/24/17 17:17 Dose: 200 mg Lorazepam (Ativan) 1 mg IVP Q6 PRN; Protocol PRN Reason: Symptoms of alcohol withdrawl Metoprolol Tartrate (Lopressor) 5 mg IVP Q4H PRN PRN Reason: Systolic Blood Pressure Last Admin: 03/24/17 09:11 Dose: 5 mg Multivitamins/Minerals (Therapeutic-M Tab) 1 tab PO 0800 [facility] Nicotine (Nicoderm Cq) 1 patch TD DAILY [facility] Last Admin: 03/24/17 09:11 Dose: 1 patch Ondansetron HCl (Zofran Inj) 4 mg IVP Q6 PRN PRN Reason: Nausea/Vomiting Pantoprazole Sodium (Protonix Inj) 40 mg IVP DAILY [facility] Last Admin: 03/24/17 09:12 Dose: 40 mg Thiamine HCl (Vitamin B1 Tab) 100 mg PO DAILY [facility] - Labs Labs: 03/24/17 05:00 03/24/17 05:00 PT 11.9 Seconds (9.9-11.8) H 03/24/17 05:00 INR 1.10 (0.93-1.08) H 03/24/17 05:00 APTT 26.8 Seconds (23.7-30.8) 03/24/17 05:00 Attending/Attestation - Attestation I have personally seen and examined this patient.: Yes I have fully participated in the care of the patient.: Yes I have reviewed all pertinent clinical information, including history, physical exam and plan: Yes Notes (Text): 03/24/17 18:17 attending note; Patient seen and examined with the resident in CCU. Patient is a 56-year-old male admitted with left sided weakness. Patient was given TPA. Currently patient with significant left upper extremity weakness. Able to move left leg. MRI showed multiple acute infarcts. Neurology evaluation requested. Start aspirin tomorrow. Hyperlipidemia; continue Lipitor. ' uncontrolled hypertension; continue nicardipine drip. Started on by mouth labetalol and Norvasc. Cocaine abuse; drug abuse cessation is strongly advised. Avoid metoprolol. Marijuana abuse; cessation is strongly advised. Active smoking; smoking cessation is strongly advised. Alcohol abuse; complete alcohol cessation is strongly advised. Ativan/Librium when necessary ordered. monitor for withdrawal symptoms. ARF;resolved. monitor the patient closely in ICU. physical therapy evaluation requested. clinical documentation manager evaluation requested For discharge planning.
--- NOTE | 2017-03-24 14:25 | CARD ---
APPROVED REPORT EKG Measurement Heart [id number] <Conclusion> Normal sinus rhythm Possible Left atrial enlargement Left ventricular hypertrophy Abnormal ECG
--- NOTE | 2017-03-24 18:37 | US ---
HISTORY: Leg pain and swelling. Evaluate for DVT PHYSICIAN(S): Dennys Whipple MD. TECHNIQUE: Duplex sonography and color-flow Doppler with graded compression were used to evaluate the deep venous systems of both lower extremities. FINDINGS: The visualized deep venous systems of both lower extremities are sonographically normal and compressible. Normal wave forms and augmentation are seen. There is no sonographic evidence for deep venous thrombosis in the visualized segments of both lower extremities. IMPRESSION: No sonographic evidence for deep venous thrombosis in the visualized segments of both lower extremities.
[2017-03-25 01:46] LABS: URINE BILIRUBIN NEGATIVE (NEGATIVE); URINE BLOOD SMALL (NEGATIVE); URINE GLUCOSE (UA) NEGATIVE (NEGATIVE); URINE KETONE NEGATIVE (NEGATIVE); URINE LEUKOCYTE ESTERASE NEGATIVE Leu/uL (NEGATIVE); URINE PROTEIN NEGATIVE mg/dL (<30 mg/dL); URINE UROBILINOGEN 0.2 E.U./dL (<1 E.U./dL)
[2017-03-25 01:55] LABS: URINE COLOR DARK YELLOW (YELLOW)
[2017-03-25 01:56] LABS: URINE APPEARANCE SLIGHT-CLOUDY (CLEAR)
[2017-03-25 02:03] LABS: URINE EPITHELIAL CELLS 0 - 2 /hpf (0-5); URINE WBC 0 - 2 /hpf (0-6)
[2017-03-25] MEDS: Pantoprazole 40 mg EC Tab PO SCH (05:03)
--- NOTE | 2017-03-25 07:08 | CP.PCM.CON ---
<Diana Diaz - Last Filed: 03/25/17 13:34> History of Present Illness - History of Present Illness History of Present Illness: Neurology Consult Note for Orly Garcia PGY2 This is a 56Y M with alcohol use and heavy smoker admitted for sudden onset of L sided weakness of both upper and lower extremities. Patient reports he was going on the train when he started to feel numb on his L side. He was diaphoretic and shaking at the time. He denies fall, loss of consciousness, hitting his head/trauma, or tongue biting. He was able to get to a restaurant for a baby shower. While he was there, he was not able to feed himself and his family called 911. He has never had symptoms like this before. He did drink the day before these symptoms about a pint of rajeev. Patient was having headaches days prior to these symptoms which was relieved by NSAIDs. In the ED, patient was found to have L sided deficits. Code Stroke was called and patient received TPA. He was placed on labetolol drip to control BP and sent to ICU. 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 Today patient reports his weakness has improved on his L lower extremity and sensation has improved. He still is unable to feel or move L forearm, but is able to move his fingers which has improved since admission. Patient denies CP, SOB, headache, vision changes, fever/chills, n/v/d. He still has numbness/tingling on his L forearm. PMH: Denies PSH: Denies Home meds: Denies All: NKDA SH: Heavy smoker, alcohol use, denies drug use FH: Denies Review of Systems - Constitutional Constitutional: As Per HPI. absent: Chills, Fever - EENT Eyes: absent: Blind Spots, Blurred Vision, Change in Vision Ears: absent: Decreased Hearing Nose/Mouth/Throat: absent: Dysphagia, Facial Pain - Cardiovascular Cardiovascular: absent: Chest Pain, Dyspnea, Edema - Respiratory Respiratory: absent: Cough, Dyspnea, Wheezing - Gastrointestinal Gastrointestinal: absent: Abdominal Pain, Change in Bowel Habits, Diarrhea, Fecal Incontinence, Nausea, Vomiting - Genitourinary Genitourinary: absent: Change in Urinary Stream, Urinary Incontinence - Musculoskeletal Musculoskeletal: Muscle Weakness (on L upper and lower extremity ), Numbness, Tingling. absent: Neck Pain - Integumentary Integumentary: absent: Change in Hair, Change in Nails - Neurological Neurological: Numbness, Focal Weakness (on L upper extremity ), Sensory Deficit (on L upper and lower ext ), Tingling. absent: Abnormal Hearing, Abnormal Movements, Abnormal Speech, Behavioral Changes, Convulsions, Dizziness, Headaches, Loss of Vision, Vertigo - Psychiatric Psychiatric: absent: Anxiety, Confusion, Depression Past Patient History - Infectious Disease Hx of Infectious Diseases: None - Tetanus Immunizations Tetanus Immunization: Unknown - Past Medical History & Family History Past Medical History?: Yes - Past Social History Smoking Status: Heavy Smoker > 10 Cigarettes Daily Alcohol: > 2 Drinks/Day Drugs: Denies Home Situation {Lives}: Alone - CARDIAC Hx Cardiac Disorders: Yes Hx Hypertension: Yes - PULMONARY Hx Respiratory Disorders: No - NEUROLOGICAL Hx Neurological Disorder: Yes HX Cerebrovascular Accident: Yes (current 03/24/17) - HEENT Hx HEENT Problems: No - RENAL Hx Chronic Kidney Disease: No - ENDOCRINE/METABOLIC Hx Endocrine Disorders: No - HEMATOLOGICAL/ONCOLOGICAL Hx Blood Disorders: No - INTEGUMENTARY Hx Dermatological Problems: No - MUSCULOSKELETAL/RHEUMATOLOGICAL Hx Musculoskeletal Disorders: No Hx Falls: No - GASTROINTESTINAL Hx Gastrointestinal Disorders: No - GENITOURINARY/GYNECOLOGICAL Hx Genitourinary Disorders: No - PSYCHIATRIC Hx Substance Use: No - SURGICAL HISTORY Hx Surgeries: No Meds Allergies/Adverse Reactions: Allergies Allergy/AdvReac Type Severity Reaction Status Date / Time No Known Allergies Allergy Verified 03/23/17 21:08 - Medications Medications: Current Medications Amlodipine Besylate (Norvasc) 5 mg PO DAILY [facility] Last Admin: 03/24/17 17:14 Dose: 5 mg Atorvastatin Calcium (Lipitor) 40 mg PO DIN [facility] Last Admin: 03/24/17 17:13 Dose: 40 mg Chlordiazepoxide (Librium) 25 mg PO Q8 PRN; Protocol PRN Reason: Anxiety Last Admin: 03/25/17 01:31 Dose: 25 mg Folic Acid (Folic Acid) 1 mg PO DAILY [facility] Last Admin: 03/24/17 14:13 Dose: 1 mg Sodium Chloride (Sodium Chloride 0.9%) 1,000 mls @ 75 mls/hr IV .[id number] [facility] Last Admin: 03/24/17 13:15 Dose: 75 mls/hr Nicardipine HCl (Cardene Iv Premix) 20 mg in 200 mls @ 50 mls/hr IV .Q4H PRN; Protocol; 5 MG/HR PRN Reason: TITRATE PER MD ORDER Last Titration: 03/25/17 04:00 Dose: 0 mg/hr, 0 mls/hr Labetalol HCl (Trandate) 200 mg PO Q12H [facility] Last Admin: 03/25/17 04:13 Dose: 200 mg Lorazepam (Ativan) 1 mg IVP Q6 PRN; Protocol PRN Reason: Symptoms of alcohol withdrawl Metoprolol Tartrate (Lopressor) 5 mg IVP Q4H PRN PRN Reason: Systolic Blood Pressure Last Admin: 03/24/17 09:11 Dose: 5 mg Multivitamins/Minerals (Therapeutic-M Tab) 1 tab PO 0800 [facility] Nicotine (Nicoderm Cq) 1 patch TD DAILY [facility] Last Admin: 03/24/17 09:11 Dose: 1 patch Ondansetron HCl (Zofran Inj) 4 mg IVP Q6 PRN PRN Reason: Nausea/Vomiting Pantoprazole Sodium (Protonix Ec Tab) 40 mg PO 0600 [facility] Last Admin: 03/25/17 05:03 Dose: 40 mg Thiamine HCl (Vitamin B1 Tab) 100 mg PO DAILY [facility] Physical Exam - Constitutional Appears: No Acute Distress - Head Exam Head Exam: ATRAUMATIC, NORMAL INSPECTION, NORMOCEPHALIC - Eye Exam Eye Exam: EOMI, Normal appearance, PERRL Pupil Exam: NORMAL ACCOMODATION, PERRL - ENT Exam ENT Exam: Mucous Membranes Moist - Respiratory Exam Respiratory Exam: Clear to Auscultation Bilateral, NORMAL BREATHING PATTERN. absent: Rales, Rhonchi, Wheezes - Cardiovascular Exam Cardiovascular Exam: REGULAR RHYTHM, +S1, +S2. absent: Gallop, Rubs, Systolic Murmur - GI/Abdominal Exam GI & Abdominal Exam: Normal Bowel Sounds, Soft. absent: Guarding, Mass, Rebound , Rigid, Tenderness - Extremities Exam Extremities exam: Positive for: normal inspection. Negative for: calf tenderness, pedal edema - Neurological Exam Neurological exam: Alert, CN II-XII Intact, Oriented x3 - Expanded Neurological Exam Expanded Patient oriented to: person, place, time Speech: Fluid Speech Cranial nerves: EOM's Intact: Normal, Facial Palsey w/Forehead Movement: Normal , Facial Palsey w/o Forehead Movement: Normal, Facial Sensation: Normal, Tongue Deviation: Normal Sensory exam: Lower Extremity 2 Point Discrimination: Abnormal Left, Lower Extremity Light Touch: Abnormal Left, Upper Extremity 2 Point Discrimination: Abnormal Left, Upper Extremity Light Touch: Abnormal Left Neuro motor strength exam: Left Upper Extremity: 0, Right Upper Extremity: 5, Left Lower Extremity: 4, Right Lower Extremity: 5 Coma Scale Eye Opening: SPONTANEOUS Coma Scale Motor Response: OBEYS COMMANDS Coma Scale Verbal: Oriented Coma Scale Total: 15 - Psychiatric Exam Psychiatric exam: Normal Affect, Normal Mood - Skin Skin Exam: Dry, Normal Color, Warm Results - Vital Signs Recent Vital Signs: Last Vital Signs Temp 98.2 F 03/25/17 06:31 Pulse 64 03/25/17 06:20 Resp 16 03/25/17 06:20 BP 123/85 03/25/17 06:00 Pulse Ox 99 03/25/17 06:20 - Labs Result Diagrams: 03/25/17 07:00 03/25/17 07:00 Labs: Laboratory Results - last 24 hr 03/24/17 03/24/17 03/24/17 10:53 10:55 10:57 Urine Color Yellow Urine Appearance Clear Urine pH 6.0 Ur Specific [place] 1.015 Urine Protein Trace H Urine Glucose (UA) Negative Urine Ketones 15 H Urine Blood Moderate H Urine Nitrate Negative Urine Bilirubin Negative Urine Urobilinogen 0.2 Ur Leukocyte Esterase Negative Urine RBC 25 - 30 Urine WBC 1 - 3 Ur Epithelial Cells 0 - 2 Urine Bacteria Few Ur Random Creatinine 263 Ur Random Sodium 113 Urine Opiates Screen Negative Urine Methadone Screen Negative Ur Barbiturates Screen Negative Ur Phencyclidine Scrn Negative Ur Amphetamines Screen Negative U Benzodiazepines Scrn Negative U Oth Cocaine Metabols Positive H U Cannabinoids Screen Positive H 03/25/17 03/25/17 01:40 01:40 Urine Color Dark yellow Urine Appearance Slight-cloudy Urine pH 6.0 Ur Specific [place] 1.010 Urine Protein Negative Urine Glucose (UA) Negative Urine Ketones Negative Urine Blood Small H Urine Nitrate Negative Urine Bilirubin Negative Urine Urobilinogen 0.2 Ur Leukocyte Esterase Negative Urine RBC 1 - 3 Urine WBC 0 - 2 Ur Epithelial Cells 0 - 2 Urine Bacteria Ur Random Creatinine Ur Random Sodium Urine Opiates Screen Negative Urine Methadone Screen Negative Ur Barbiturates Screen Negative Ur Phencyclidine Scrn Negative Ur Amphetamines Screen Negative U Benzodiazepines Scrn Negative U Oth Cocaine Metabols Positive H U Cannabinoids Screen Positive H Assessment & Plan - Assessment and Plan (Free Text) Assessment: This is a 56Y M with PMH of alcohol abuse and heavy smoking 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 L lower extremity deficits are improving and continues to have decreased strength/weakness in L upper forearm. Head/Neck CTA showed tortuous basilar artery. Plan: - Maintain SBP between 130-140s. Stop Labetolol drip and transition to oral anti -hypertensives - Maintain euglycemia (140-180s) - Physical therapy/ Occupational therapy - Continue CIWA protocol - Continue Statin, ASA - Will start Plavix - Cessation of alcohol, tobacco and drug use - Follow up cardiac work up (Echo) and cardiology recommendations Thank you for this consultation. Please re-consult if needed. Case seen, discussed and reviewed with attending, Dr. Nicole Diaz PGY2 - Date & Time Date: 03/25/17 Time: 09:41 <Bob Rivera - Last Filed: 03/25/17 13:43> Meds - Medications Medications: Current Medications Amlodipine Besylate (Norvasc) 5 mg PO DAILY [facility] Last Admin: 03/25/17 09:57 Dose: 5 mg Aspirin (Ecotrin) 81 mg PO DAILY [facility] Atorvastatin Calcium (Lipitor) 40 mg PO DIN [facility] Last Admin: 03/24/17 17:13 Dose: 40 mg Chlordiazepoxide (Librium) 25 mg PO Q12 [facility] PRN Reason: Protocol Clopidogrel Bisulfate (Plavix) 75 mg PO DAILY [facility] Last Admin: 03/25/17 10:30 Dose: 75 mg Folic Acid (Folic Acid) 1 mg PO DAILY [facility] Last Admin: 03/25/17 09:55 Dose: 1 mg Sodium Chloride (Sodium Chloride 0.9%) 1,000 mls @ 75 mls/hr IV .[id number] [facility] Last Admin: 03/24/17 13:15 Dose: 75 mls/hr Nicardipine HCl (Cardene Iv Premix) 20 mg in 200 mls @ 50 mls/hr IV .Q4H PRN; Protocol; 5 MG/HR PRN Reason: TITRATE PER MD ORDER Last Titration: 03/25/17 04:00 Dose: 0 mg/hr, 0 mls/hr Labetalol HCl (Trandate) 200 mg PO Q12H [facility] Last Admin: 03/25/17 04:13 Dose: 200 mg Lorazepam (Ativan) 1 mg IVP Q6 PRN; Protocol PRN Reason: Symptoms of alcohol withdrawl Metoprolol Tartrate (Lopressor) 5 mg IVP Q4H PRN PRN Reason: Systolic Blood Pressure Last Admin: 03/24/17 09:11 Dose: 5 mg Multivitamins/Minerals (Therapeutic-M Tab) 1 tab PO 0800 [facility] Last Admin: 03/25/17 09:57 Dose: 1 tab Nicotine (Nicoderm Cq) 1 patch TD DAILY [facility] Last Admin: 03/25/17 09:55 Dose: 1 patch Ondansetron HCl (Zofran Inj) 4 mg IVP Q6 PRN PRN Reason: Nausea/Vomiting Pantoprazole Sodium (Protonix Ec Tab) 40 mg PO 0600 [facility] Last Admin: 03/25/17 05:03 Dose: 40 mg Thiamine HCl (Vitamin B1 Tab) 100 mg PO DAILY [facility] Last Admin: 03/25/17 09:59 Dose: 100 mg Results - Vital Signs Recent Vital Signs: Last Vital Signs Temp 98.2 F 03/25/17 06:31 Pulse 64 03/25/17 06:20 Resp 16 03/25/17 06:20 BP 147/91 H 03/25/17 09:57 Pulse Ox 99 03/25/17 06:20 - Labs Result Diagrams: 03/25/17 07:00 03/25/17 07:00 Labs: Laboratory Results - last 24 hr 03/25/17 03/25/17 03/25/17 01:40 01:40 07:00 WBC 5.7 D RBC 4.70 Hgb 14.4 Hct 41.5 L MCV 88.3 MCH 30.6 MCHC 34.7 RDW 13.1 Plt Count 286 MPV 10.0 Gran % 53.8 Lymph % (Auto) 30.2 [place] % (Auto) 10.9 H Eos % (Auto) 4.7 Baso % (Auto) 0.4 Gran # 3.06 Lymph # 1.7 [place] # 0.6 Eos # 0.3 Baso # 0.02 Sodium Potassium Chloride Carbon Dioxide Anion Gap BUN Creatinine Est GFR ( Amer) Est GFR (Non-Af Amer) Random Glucose Calcium Urine Color Dark yellow Urine Appearance Slight-cloudy Urine pH 6.0 Ur Specific [place] 1.010 Urine Protein Negative Urine Glucose (UA) Negative Urine Ketones Negative Urine Blood Small H Urine Nitrate Negative Urine Bilirubin Negative Urine Urobilinogen 0.2 Ur Leukocyte Esterase Negative Urine RBC 1 - 3 Urine WBC 0 - 2 Ur Epithelial Cells 0 - 2 Urine Opiates Screen Negative Urine Methadone Screen Negative Ur Barbiturates Screen Negative Ur Phencyclidine Scrn Negative Ur Amphetamines Screen Negative U Benzodiazepines Scrn Negative U Oth Cocaine Metabols Positive H U Cannabinoids Screen Positive H 03/25/17 07:00 WBC RBC Hgb Hct MCV MCH MCHC RDW Plt Count MPV Gran % Lymph % (Auto) [place] % (Auto) Eos % (Auto) Baso % (Auto) Gran # Lymph # [place] # Eos # Baso # Sodium 140 Potassium 3.1 L Chloride 104 Carbon Dioxide 27 Anion Gap 12 BUN 14 Creatinine 1.0 Est GFR ( Amer) > 60 Est GFR (Non-Af Amer) > 60 Random Glucose 108 Calcium 8.8 Urine Color Urine Appearance Urine pH Ur Specific [place] Urine Protein Urine Glucose (UA) Urine Ketones Urine Blood Urine Nitrate Urine Bilirubin Urine Urobilinogen Ur Leukocyte Esterase Urine RBC Urine WBC Ur Epithelial Cells Urine Opiates Screen Urine Methadone Screen Ur Barbiturates Screen Ur Phencyclidine Scrn Ur Amphetamines Screen U Benzodiazepines Scrn U Oth Cocaine Metabols U Cannabinoids Screen Assessment & Plan - Assessment and Plan (Free Text) Assessment: SCATTERED FOCI OF CEREBRAL INFARCTS ARE SECONDARY TO CORONARY AND CEREBRAL VASOSPASM CAUSING EMBOLIC INFARCTS SUPERIMPOSED UNDERLYING ATHEROSCLEROTIC DISEASE. STILL HAS LEFT SIDE WEAKNESS FROM INFARCTS.
[2017-03-25 07:21] LABS: BASO # 0.02 K/mm3 (0.0-2.0); BASO % 0.4 % (0.0-3.0); EOS # 0.3 (0.0-0.7); EOS % 4.7 % (1.5-5.0); GRAN # 3.06 (1.4-6.5); GRAN % 53.8 % (50.0-68.0); HEMATOCRIT 41.5 % (42.0-52.0); LYMPH # 1.7 (1.2-3.4); LYMPH % 30.2 % (22.0-35.0); MEAN CELL VOLUME 88.3 fl (80.0-105.0); MEAN CORPUSCULAR HEMOGLOBIN 30.6 pg (25.0-35.0); MEAN CORPUSCULAR HGB CONC 34.7 g/dl (31.0-37.0); MONO # 0.6 (0.1-0.6); MONO % 10.9 % (1.0-6.0); RED CELL DISTRIBUTION WIDTH 13.1 % (11.5-14.5); WHITE BLOOD COUNT 5.7 10^3/ul (4.5-11.0)
--- NOTE | 2017-03-25 07:23 | CP.CCUPN ---
CCU Subjective - Physician Review Critical Care Time Spent (in minutes): 35 CCU Objective - Vital Signs / Intake & Output Vital Signs (Last 4 hours): Vital Signs Temp Pulse Resp BP Pulse Ox 03/25/17 06:31 98.2 F 03/25/17 06:20 64 16 99 03/25/17 06:10 69 15 99 03/25/17 06:00 70 18 123/85 97 03/25/17 05:50 68 32 H 98 03/25/17 05:40 66 17 98 03/25/17 05:30 67 20 124/76 99 03/25/17 05:20 74 17 98 03/25/17 05:10 69 15 97 03/25/17 05:00 68 16 129/89 97 03/25/17 04:50 68 16 97 03/25/17 04:40 69 16 95 03/25/17 04:30 66 16 130/89 96 03/25/17 04:20 72 17 95 03/25/17 04:13 69 115/71 03/25/17 04:10 70 16 97 03/25/17 04:00 69 17 115/71 97 03/25/17 03:54 97 03/25/17 03:50 71 17 96 03/25/17 03:40 77 16 96 03/25/17 03:30 85 127/84 99 03/25/17 03:20 68 18 97 Intake and Output (Last 8hrs): Intake & Output 03/24/17 03/25/17 03/25/17 22:59 06:59 14:59 Intake Total 2575 1488 Output Total 1050 450 Balance 1525 1038 Weight 79.152 kg Intake: IV 1625 1488 Right Antecubital 1250 1200 Oral 950 Output: Urine 1050 450 Urine, Voided 1050 450 Other: # Bowel Movements 1 - Physical Exam Head: Positive for: Atraumatic, Normocephalic, Other (slight facial asymmetric noted ) Pupils: Positive for: PERRL Extroacular Muscles: Positive for: EOMI Conjunctiva: Positive for: Normal Mouth: Positive for: Moist Mucous Membranes Neck: Positive for: Normal Range of Motion Respiratory/Chest: Positive for: Clear to Auscultation, Good Air Exchange. Negative for: Respiratory Distress, Accessory Muscle Use Cardiovascular: Positive for: Regular Rate and Rhythm, Normal S1, S2. Negative for: Murmurs Abdomen: Positive for: Normal Bowel Sounds. 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 Negative for: Cyanosis, Edema Lower Extremity: Positive for: Other (Decreased left leg raise). Negative for: Edema Skin: Positive for: Warm, Dry, Normal Color. Negative for: Rashes Lymphatic: Positive for: OX3, NI, NC Psychiatric: Positive for: Alert, Oriented x 3, Normal Insight, Normal Concentration - Medications Active Medications: Active Medications Generic Name Dose Route Start Last Admin Trade Name Freq PRN Reason Stop Dose Admin Amlodipine Besylate 5 mg 03/24/17 16:15 03/24/17 17:14 Norvasc PO 5 mg DAILY [facility] Administration Atorvastatin Calcium 40 mg 03/24/17 17:00 03/24/17 17:13 Lipitor PO 40 mg DIN [facility] Administration Chlordiazepoxide 25 mg 03/24/17 07:56 03/25/17 01:31 Librium PO 25 mg Q8 PRN Administration Anxiety Protocol Folic Acid 1 mg 03/24/17 13:30 03/24/17 14:13 Folic Acid PO 1 mg DAILY [facility] Administration Sodium Chloride 1,000 mls @ 75 mls/hr 03/23/17 23:45 03/24/17 13:15 Sodium Chloride 0.9% IV 75 mls/hr .[id number] [facility] Administration Nicardipine HCl 20 mg in 200 mls @ 50 mls/hr 03/24/17 11:06 03/25/17 04:00 Cardene Iv Premix IV 0 mg/hr .Q4H PRN 0 mls/hr TITRATE PER MD ORDER Titration Protocol 5 MG/HR Labetalol HCl 200 mg 03/24/17 16:11 03/25/17 04:13 Trandate PO 200 mg Q12H [facility] Administration Lorazepam 1 mg 03/24/17 05:29 Ativan IVP Q6 PRN Symptoms of alcohol withdrawl Protocol Metoprolol Tartrate 5 mg 03/23/17 23:22 03/24/17 09:11 Lopressor IVP 5 mg Q4H PRN Administration Systolic Blood Pressure Multivitamins/Minerals 1 tab 03/25/17 08:00 Therapeutic-M Tab PO 0800 [facility] Nicotine 1 patch 03/24/17 10:00 03/24/17 09:11 Nicoderm Cq TD 1 patch DAILY [facility] Administration Ondansetron HCl 4 mg 03/23/17 23:24 Zofran Inj IVP Q6 PRN Nausea/Vomiting Pantoprazole Sodium 40 mg 03/25/17 06:00 03/25/17 05:03 Protonix Ec Tab PO 40 mg 0600 [facility] Administration Thiamine HCl 100 mg 03/25/17 10:00 Vitamin B1 Tab PO DAILY [facility] - Patient Studies Lab Studies: Lab Studies 03/25/17 03/25/17 03/24/17 Range/Units 01:40 01:40 10:57 Urine Color Dark yellow (YELLOW) Urine Appearance Slight-cloudy (CLEAR) Urine pH 6.0 (4.7-8.0) Ur Specific [place] 1.010 (1.005-1.035) Urine Protein Negative (<30 mg/dL) mg/dL Urine Glucose (UA) Negative (NEGATIVE) mg/dL Urine Ketones Negative (NEGATIVE) mg/dL Urine Blood Small H (NEGATIVE) Urine Nitrate Negative (NEGATIVE) Urine Bilirubin Negative (NEGATIVE) Urine Urobilinogen 0.2 (<1 E.U./dL) E.U./dL Ur Leukocyte Esterase Negative (NEGATIVE) Hussein/uL Urine RBC 1 - 3 (0-2) /hpf Urine WBC 0 - 2 (0-6) /hpf Ur Epithelial Cells 0 - 2 (0-5) /hpf Urine Bacteria (NEG) Ur Random Creatinine mg/dL Ur Random Sodium meq/L Urine Opiates Screen Negative Negative (NEGATIVE) Urine Methadone Screen Negative Negative (NEGATIVE) Ur Barbiturates Screen Negative Negative (NEGATIVE) Ur Phencyclidine Scrn Negative Negative (NEGATIVE) Ur Amphetamines Screen Negative Negative (NEGATIVE) U Benzodiazepines Scrn Negative Negative (NEGATIVE) U Oth Cocaine Metabols Positive H Positive H (NEGATIVE) U Cannabinoids Screen Positive H Positive H (NEGATIVE) 03/24/17 03/24/17 Range/Units 10:55 10:53 Urine Color Yellow (YELLOW) Urine Appearance Clear (CLEAR) Urine pH 6.0 (4.7-8.0) Ur Specific [place] 1.015 (1.005-1.035) Urine Protein Trace H (<30 mg/dL) mg/dL Urine Glucose (UA) Negative (NEGATIVE) mg/dL Urine Ketones 15 H (NEGATIVE) mg/dL Urine Blood Moderate H (NEGATIVE) Urine Nitrate Negative (NEGATIVE) Urine Bilirubin Negative (NEGATIVE) Urine Urobilinogen 0.2 (<1 E.U./dL) E.U./dL Ur Leukocyte Esterase Negative (NEGATIVE) Hussein/uL Urine RBC 25 - 30 (0-2) /hpf Urine WBC 1 - 3 (0-6) /hpf Ur Epithelial Cells 0 - 2 (0-5) /hpf Urine Bacteria Few (NEG) Ur Random Creatinine 263 mg/dL Ur Random Sodium 113 meq/L Urine Opiates Screen (NEGATIVE) Urine Methadone Screen (NEGATIVE) Ur Barbiturates Screen (NEGATIVE) Ur Phencyclidine Scrn (NEGATIVE) Ur Amphetamines Screen (NEGATIVE) U Benzodiazepines Scrn (NEGATIVE) U Oth Cocaine Metabols (NEGATIVE) U Cannabinoids Screen (NEGATIVE) Laboratory Results - last 24 hr 03/24/17 03/24/17 03/24/17 10:53 10:55 10:57 Urine Color Yellow Urine Appearance Clear Urine pH 6.0 Ur Specific [place] 1.015 Urine Protein Trace H Urine Glucose (UA) Negative Urine Ketones 15 H Urine Blood Moderate H Urine Nitrate Negative Urine Bilirubin Negative Urine Urobilinogen 0.2 Ur Leukocyte Esterase Negative Urine RBC 25 - 30 Urine WBC 1 - 3 Ur Epithelial Cells 0 - 2 Urine Bacteria Few Ur Random Creatinine 263 Ur Random Sodium 113 Urine Opiates Screen Negative Urine Methadone Screen Negative Ur Barbiturates Screen Negative Ur Phencyclidine Scrn Negative Ur Amphetamines Screen Negative U Benzodiazepines Scrn Negative U Oth Cocaine Metabols Positive H U Cannabinoids Screen Positive H 03/25/17 03/25/17 01:40 01:40 Urine Color Dark yellow Urine Appearance Slight-cloudy Urine pH 6.0 Ur Specific [place] 1.010 Urine Protein Negative Urine Glucose (UA) Negative Urine Ketones Negative Urine Blood Small H Urine Nitrate Negative Urine Bilirubin Negative Urine Urobilinogen 0.2 Ur Leukocyte Esterase Negative Urine RBC 1 - 3 Urine WBC 0 - 2 Ur Epithelial Cells 0 - 2 Urine Bacteria Ur Random Creatinine Ur Random Sodium Urine Opiates Screen Negative Urine Methadone Screen Negative Ur Barbiturates Screen Negative Ur Phencyclidine Scrn Negative Ur Amphetamines Screen Negative U Benzodiazepines Scrn Negative U Oth Cocaine Metabols Positive H U Cannabinoids Screen Positive H Fingerstick Blood Sugar Results: 118 Critical Care Progress Note - Nutrition Nutrition: Nutrition Category Date Time Status Heart Healthy Diet [DIET] Diets 03/24/17 Breakfast Ordered
[2017-03-25 07:35] LABS: BLOOD UREA NITROGEN 14 mg/dL (7-21); CALCIUM 8.8 mg/dL (8.4-10.5); CARBON DIOXIDE 27 mmol/L (21-33); CHLORIDE 104 mmol/L (95-110); GFR AFRICAN-AMERICAN > 60; GLUCOSE,RANDOM 108 mg/dL (70-110); POTASSIUM 3.1 mmol/L (3.6-5.0); SODIUM 140 mmol/L (132-148)
[2017-03-25] MEDS: Multivitamin With Minerals Tab PO SCH (09:57)
--- NOTE | 2017-03-25 11:27 | CP.PCM.PN ---
Subjective - Date & Time of Evaluation Date of Evaluation: 03/25/17 Time of Evaluation: 07:15 - Subjective Subjective: CRITICAL CARE PROGRESS NOTE Patient seen and examined, reports to be doing well. Patient complaining of LUE weakness, which he states has not improved. No other constitutional symptoms. Objective - Vital Signs/Intake and Output Vital Signs (last 24 hours): Temp Pulse Resp BP Pulse Ox 98.2 F 64 16 147/91 H 99 03/25/17 06:31 03/25/17 06:20 03/25/17 06:20 03/25/17 09:57 03/25/17 06:20 Intake and Output: 03/25/17 03/25/17 06:59 18:59 Intake Total 1688 Output Total 450 Balance 1238 - Medications Medications: Current Medications Amlodipine Besylate (Norvasc) 5 mg PO DAILY [facility] Last Admin: 03/25/17 09:57 Dose: 5 mg Aspirin (Ecotrin) 81 mg PO DAILY [facility] Atorvastatin Calcium (Lipitor) 40 mg PO DIN [facility] Last Admin: 03/24/17 17:13 Dose: 40 mg Chlordiazepoxide (Librium) 25 mg PO Q12 JENNIFER PRN Reason: Protocol Clopidogrel Bisulfate (Plavix) 75 mg PO DAILY [facility] Folic Acid (Folic Acid) 1 mg PO DAILY [facility] Last Admin: 03/25/17 09:55 Dose: 1 mg Sodium Chloride (Sodium Chloride 0.9%) 1,000 mls @ 75 mls/hr IV .[id number] [facility] Last Admin: 03/24/17 13:15 Dose: 75 mls/hr Nicardipine HCl (Cardene Iv Premix) 20 mg in 200 mls @ 50 mls/hr IV .Q4H PRN; Protocol; 5 MG/HR PRN Reason: TITRATE PER MD ORDER Last Titration: 03/25/17 04:00 Dose: 0 mg/hr, 0 mls/hr Labetalol HCl (Trandate) 200 mg PO Q12H [facility] Last Admin: 03/25/17 04:13 Dose: 200 mg Lorazepam (Ativan) 1 mg IVP Q6 PRN; Protocol PRN Reason: Symptoms of alcohol withdrawl Metoprolol Tartrate (Lopressor) 5 mg IVP Q4H PRN PRN Reason: Systolic Blood Pressure Last Admin: 03/24/17 09:11 Dose: 5 mg Multivitamins/Minerals (Therapeutic-M Tab) 1 tab PO 0800 [facility] Last Admin: 03/25/17 09:57 Dose: 1 tab Nicotine (Nicoderm Cq) 1 patch TD DAILY [facility] Last Admin: 03/25/17 09:55 Dose: 1 patch Ondansetron HCl (Zofran Inj) 4 mg IVP Q6 PRN PRN Reason: Nausea/Vomiting Pantoprazole Sodium (Protonix Ec Tab) 40 mg PO 0600 [facility] Last Admin: 03/25/17 05:03 Dose: 40 mg Thiamine HCl (Vitamin B1 Tab) 100 mg PO DAILY [facility] Last Admin: 03/25/17 09:59 Dose: 100 mg - Labs Labs: 03/25/17 07:00 03/25/17 07:00 PT 11.9 Seconds (9.9-11.8) H 03/24/17 05:00 INR 1.10 (0.93-1.08) H 03/24/17 05:00 APTT 26.8 Seconds (23.7-30.8) 03/24/17 05:00 - Constitutional Appears: Well, Non-toxic, No Acute Distress - Head Exam Head Exam: ATRAUMATIC - Eye Exam Eye Exam: EOMI - Neck Exam Neck Exam: Full ROM - Respiratory Exam Respiratory Exam: Clear to Ausculation Bilateral, NORMAL BREATHING PATTERN - Cardiovascular Exam Cardiovascular Exam: REGULAR RHYTHM, +S1, +S2 - GI/Abdominal Exam GI & Abdominal Exam: Soft, Normal Bowel Sounds - Extremities Exam Extremities Exam: Normal Inspection - Neurological Exam Neuro motor strength exam: Left Upper Extremity: 3, Right Upper Extremity: 5, Left Lower Extremity: 5, Right Lower Extremity: 5 Assessment and Plan - Assessment and Plan (Free Text) Assessment: 56yo male with R MCA CVA s/p tPA Acute CVA, s/p tPA HTN Polysubstance abuse - currently afebrile, HD stable, comfortable - patient has LUE weakness, 3/5, all other ext 5/5 - MRI brain with R frontal, MCA territory ischemic stroke - neurology following - BP well controlled Recommend: - ASA, Plavix, Statin - ECHO - BP control - MRI brain noted, CT angio neck noted - ECHO - PT/OT - follow up neurology - taper Librium - MVT, Thiamine, Folic Acid - replete K - DVT ppx - GI ppx - FS control
[2017-03-25] MEDS ORDERED: Potassium Chloride 40 mEq/30 ml LIQ UD PO ONE (11:51)
--- NOTE | 2017-03-25 11:55 | CP.PCM.PN ---
<Belkis Back - Last Filed: 03/25/17 17:24> Subjective - Date & Time of Evaluation Date of Evaluation: 03/25/17 Time of Evaluation: 09:30 - Subjective Subjective: Hospitalist Service Progress Note: Patient seen and examined at bedside. Per nursing no acute events overnight. Patient is doing well, reports that L sided weakness is improving. Tolerating diet. Offers no other complaints at this time. Denies headache, dizziness, cp, palpitations, sob, urinary symptoms. On Nicardipine drip. Objective - Vital Signs/Intake and Output Vital Signs (last 24 hours): Temp Pulse Resp BP Pulse Ox 98.2 F 64 16 147/91 H 99 03/25/17 06:31 03/25/17 06:20 03/25/17 06:20 03/25/17 09:57 03/25/17 06:20 Intake and Output: 03/25/17 03/25/17 06:59 18:59 Intake Total 1688 Output Total 450 Balance 1238 - Medications Medications: Current Medications Amlodipine Besylate (Norvasc) 5 mg PO DAILY [facility] Last Admin: 03/25/17 09:57 Dose: 5 mg Aspirin (Ecotrin) 81 mg PO DAILY [facility] Atorvastatin Calcium (Lipitor) 40 mg PO DIN [facility] Last Admin: 03/24/17 17:13 Dose: 40 mg Chlordiazepoxide (Librium) 25 mg PO Q12 JENNIFER PRN Reason: Protocol Clopidogrel Bisulfate (Plavix) 75 mg PO DAILY [facility] Folic Acid (Folic Acid) 1 mg PO DAILY [facility] Last Admin: 03/25/17 09:55 Dose: 1 mg Sodium Chloride (Sodium Chloride 0.9%) 1,000 mls @ 75 mls/hr IV .[id number] [facility] Last Admin: 03/24/17 13:15 Dose: 75 mls/hr Nicardipine HCl (Cardene Iv Premix) 20 mg in 200 mls @ 50 mls/hr IV .Q4H PRN; Protocol; 5 MG/HR PRN Reason: TITRATE PER MD ORDER Last Titration: 03/25/17 04:00 Dose: 0 mg/hr, 0 mls/hr Labetalol HCl (Trandate) 200 mg PO Q12H [facility] Last Admin: 03/25/17 04:13 Dose: 200 mg Lorazepam (Ativan) 1 mg IVP Q6 PRN; Protocol PRN Reason: Symptoms of alcohol withdrawl Metoprolol Tartrate (Lopressor) 5 mg IVP Q4H PRN PRN Reason: Systolic Blood Pressure Last Admin: 03/24/17 09:11 Dose: 5 mg Multivitamins/Minerals (Therapeutic-M Tab) 1 tab PO 0800 [facility] Last Admin: 03/25/17 09:57 Dose: 1 tab Nicotine (Nicoderm Cq) 1 patch TD DAILY [facility] Last Admin: 03/25/17 09:55 Dose: 1 patch Ondansetron HCl (Zofran Inj) 4 mg IVP Q6 PRN PRN Reason: Nausea/Vomiting Pantoprazole Sodium (Protonix Ec Tab) 40 mg PO 0600 [facility] Last Admin: 03/25/17 05:03 Dose: 40 mg Potassium Chloride (Potassium Chloride Oral Soln) 40 meq PO ONCE ONE Stop: 03/25/17 11:52 Thiamine HCl (Vitamin B1 Tab) 100 mg PO DAILY [facility] Last Admin: 03/25/17 09:59 Dose: 100 mg - Labs Labs: 03/25/17 07:00 03/25/17 07:00 PT 11.9 Seconds (9.9-11.8) H 03/24/17 05:00 INR 1.10 (0.93-1.08) H 03/24/17 05:00 APTT 26.8 Seconds (23.7-30.8) 03/24/17 05:00 - Constitutional Appears: Well, Toxic - Head Exam Head Exam: ATRAUMATIC, NORMAL INSPECTION - Eye Exam Eye Exam: EOMI, Normal appearance Pupil Exam: NORMAL ACCOMODATION, PERRL - ENT Exam ENT Exam: Mucous Membranes Moist - Neck Exam Neck Exam: Full ROM - Respiratory Exam Respiratory Exam: Clear to Ausculation Bilateral, NORMAL BREATHING PATTERN. absent: Rales, Rhonchi, Wheezes - Cardiovascular Exam Cardiovascular Exam: REGULAR RHYTHM, +S1, +S2. absent: Murmur - GI/Abdominal Exam GI & Abdominal Exam: Soft, Normal Bowel Sounds. absent: Guarding, Rigid, Tenderness - Extremities Exam Extremities Exam: Normal Capillary Refill. absent: Calf Tenderness Additional comments: L UE muscle strength 2/5 L LE muscle strength 3/5 Sensation intact throughout - Back Exam Back Exam: NORMAL INSPECTION - Neurological Exam Neurological Exam: Alert, Awake, Oriented x3 Neuro motor strength exam: Left Upper Extremity: 2/1, Right Upper Extremity: 5, Left Lower Extremity: 3, Right Lower Extremity: 5 - Psychiatric Exam Psychiatric exam: Normal Affect, Normal Mood - Skin Skin Exam: Dry, Normal Color, Warm Assessment and Plan - Assessment and Plan (Free Text) Assessment: 56 y/o with h/o alcohol and tobacco abuse brought in by EMS with weakness and numbness of the left upper and lower extremities. Patient was suspected to have stroke, code stroke was called, CT head w/o contrast was negative for hemorrhage. Patient was giving TPA with some improvement in the extremities ROM and was transferred to ICU for further monitoring. Plan: 1. Acute CVA (Possibly embolic in nature) -VSS, afebrile -S/P TPA on 03/23/17 -MRI showing multiple acute infarcts -On ASA and Plavix -Echo ordered -Cardiology on consult -Neurology on consult, f/u recommendations -PT ordered, f/u recommendations 2. Hypertension -Normotensive, currently on Nicardipine drip -On Lopressor, Labetolol, Norvasc 3. Hypercholesterolemia -Cholesterol 217, LDL wnl -Continue Lipitor 4. Substance Abuse -UTOX positive for cocaine and cannabinoids -Encourage cessation 5. Low TSH, Free T4 -Likely secondary to sick euthryoid -Will repeat thyroid studies 6. Alcohol/Tobacco abuse -Librium prn, Ativan prn -CIWA protocol -Nicotine patch -Will monitor for signs and symptoms of withdrawal 7. GI/DVT ppx -Protonix 40mg po -SCDs <Yuniel Harrell - Last Filed: 03/26/17 17:57> Objective - Vital Signs/Intake and Output Vital Signs (last 24 hours): Temp Pulse Resp BP Pulse Ox 97.0 F L 83 16 158/71 H 100 03/26/17 16:00 03/26/17 17:28 03/26/17 17:22 03/26/17 17:28 03/26/17 17:01 Intake and Output: 03/26/17 03/26/17 06:59 18:59 Intake Total 240 Output Total 500 Balance -260 - Medications Medications: Current Medications Amlodipine Besylate (Norvasc) 10 mg PO DAILY [facility] Last Admin: 03/26/17 09:54 Dose: Not Given Aspirin (Ecotrin) 81 mg PO DAILY [facility] Last Admin: 03/26/17 09:54 Dose: Not Given Atorvastatin Calcium (Lipitor) 40 mg PO DIN [facility] Last Admin: 03/26/17 17:28 Dose: 40 mg Chlordiazepoxide (Librium) 10 mg PO Q12 JENNIFER PRN Reason: Protocol Clopidogrel Bisulfate (Plavix) 75 mg PO DAILY [facility] Last Admin: 03/26/17 09:54 Dose: Not Given Folic Acid (Folic Acid) 1 mg PO DAILY [facility] Last Admin: 03/26/17 09:54 Dose: Not Given Hydralazine HCl (Apresoline) 10 mg IVP Q6 PRN PRN Reason: for sbp.170 and/or diasto.100 Sodium Chloride (Sodium Chloride 0.9%) 1,000 mls @ 75 mls/hr IV .[id number] [facility] Last Admin: 03/24/17 13:15 Dose: 75 mls/hr Labetalol HCl (Trandate) 200 mg PO Q12H [facility] Last Admin: 03/26/17 17:28 Dose: 200 mg Lisinopril (Zestril) 20 mg PO DAILY [facility] Last Admin: 03/26/17 09:54 Dose: 20 mg Lorazepam (Ativan) 1 mg IVP Q6 PRN; Protocol PRN Reason: Symptoms of alcohol withdrawl Metoprolol Tartrate (Lopressor) 5 mg IVP Q4H PRN PRN Reason: Systolic Blood Pressure Last Admin: 03/25/17 14:36 Dose: 5 mg Multivitamins/Minerals (Therapeutic-M Tab) 1 tab PO 0800 [facility] Last Admin: 03/26/17 08:23 Dose: 1 tab Nicotine (Nicoderm Cq) 1 patch TD DAILY [facility] Last Admin: 03/26/17 09:54 Dose: 1 patch Ondansetron HCl (Zofran Inj) 4 mg IVP Q6 PRN PRN Reason: Nausea/Vomiting Pantoprazole Sodium (Protonix Ec Tab) 40 mg PO 0600 [facility] Last Admin: 03/26/17 05:05 Dose: 40 mg Thiamine HCl (Vitamin B1 Tab) 100 mg PO DAILY [facility] Last Admin: 03/26/17 10:45 Dose: Not Given - Labs Labs: 03/26/17 05:20 03/26/17 05:20 PT 11.9 Seconds (9.9-11.8) H 03/24/17 05:00 INR 1.10 (0.93-1.08) H 03/24/17 05:00 APTT 26.8 Seconds (23.7-30.8) 03/24/17 05:00 Attending/Attestation - Attestation I have personally seen and examined this patient.: Yes I have fully participated in the care of the patient.: Yes I have reviewed all pertinent clinical information, including history, physical exam and plan: Yes Notes (Text): I have seen and examined the patient at bedside. Agree with the above note with the following additions/ exceptions: Briefly this is 56 year old male with history of alcohol , marijuana and tobacco abuse who came for eval of Left sided weakness and found to have Acute CVA possibly embolic in nature.He has no underlying known heart disease and no arrythmia was noted. He was given tpa upon presentation. He was started on asa and plavix today. Continue lipitor. Cardiology consult pending. Echo ordered. Counselling provided regarding substance abuse. BP has improved. Off of nicardipine drip and was started on lopressor, labetalol and norvasc. Continue librium taper. PT eval pending. Upon discharge patient will follow up with [facility] clinic. Dr Yuniel Harrell
[2017-03-25] MEDS: Metoprolol 1 mg/ml Inj IVP PRN (14:36)
[2017-03-26] MEDS: Pantoprazole 40 mg EC Tab PO SCH (05:05)
[2017-03-26 07:10] LABS: BASO # 0.02 K/mm3 (0.0-2.0); BASO % 0.4 % (0.0-3.0); EOS # 0.4 (0.0-0.7); EOS % 8.5 % (1.5-5.0); GRAN # 2.24 (1.4-6.5); GRAN % 47.6 % (50.0-68.0); HEMATOCRIT 41.9 % (42.0-52.0); LYMPH # 1.5 (1.2-3.4); LYMPH % 32.6 % (22.0-35.0); MEAN CORPUSCULAR HEMOGLOBIN 30.1 pg (25.0-35.0); MEAN CORPUSCULAR HGB CONC 33.9 g/dl (31.0-37.0); MEAN PLATELET VOLUME 9.9 fl (7.0-11.0); MONO # 0.5 (0.1-0.6); MONO % 10.9 % (1.0-6.0); RED CELL DISTRIBUTION WIDTH 13.1 % (11.5-14.5); WHITE BLOOD COUNT 4.7 10^3/ul (4.5-11.0)
[2017-03-26 07:23] LABS: FREE T4 0.88 ng/dL (0.78-2.19)
[2017-03-26 07:24] LABS: MAGNESIUM 1.8 mg/dL (1.7-2.2); PHOSPHOROUS 3.2 mg/dL (2.5-4.5)
[2017-03-26 07:37] LABS: THYROID STIMULATING HORMONE 0.95 mIU/mL (0.46-4.68)
[2017-03-26 08:16] LABS: BLOOD UREA NITROGEN 12 mg/dL (7-21); CALCIUM 8.9 mg/dL (8.4-10.5); CARBON DIOXIDE 25 mmol/L (21-33); CHLORIDE 106 mmol/L (98-107); GFR AFRICAN-AMERICAN > 60; GLUCOSE,RANDOM 102 mg/dL (70-110); POTASSIUM 3.6 mmol/L (3.6-5.0); SODIUM 140 mmol/L (132-148)
[2017-03-26] MEDS: Multivitamin With Minerals Tab PO SCH (08:23)
--- NOTE | 2017-03-26 08:26 | CARD ---
APPROVED REPORT EXAM: Two-dimensional and M-mode echocardiogram with Doppler and color Doppler. Other Information Quality : AverageRhythm : INDICATION CVA/TIA BUBBLE STUDY 2D DIMENSIONS Left Atrium (2D)3.5 (1.6-4.0cm)IVSd1.3 (0.7-1.1cm) LVDd4.7 (3.9-5.9cm)PWd1.3 (0.7-1.1cm) LVDs3.2 (2.5-4.0cm)FS (%) 31.8 % LVEF (%)60.0 (>50%) M-Mode DIMENSIONS Aortic Root3.30 (2.2-3.7cm)Aortic Cusp Exc.1.80 (1.5-2.0cm) Aortic Valve AoV Peak Mdwyxigh459.0cm/s Mitral Valve MV E Gudebpcc56.7cm/sMV A Gzadngxf60.2cm/sE/A ratio0.6 TDI E/Lateral E'0.0E/Medial E'0.0 Tricuspid Valve TR Peak [id number]/sRAP [id number] Peak Gr.16mmHg [id number] LEFT VENTRICLE The left ventricle is normal size. There is mild concentric left ventricular hypertrophy. The left ventricular function is normal. The left ventricular ejection fraction is within the normal range. There is normal LV segmental wall motion. RIGHT VENTRICLE The right ventricle is normal size. ATRIA The left atrium size is normal. The right atrium size is normal. The interatrial septum is intact with no evidence for an atrial septal defect. AORTIC VALVE The aortic valve is normal in structure. MITRAL VALVE The mitral valve is normal in structure. TRICUSPID VALVE The tricuspid valve is normal in structure. There is trace tricuspid regurgitation. PULMONIC VALVE The pulmonic valve is not well visualized. GREAT VESSELS The aortic root is normal in size. PERICARDIAL EFFUSION There is no pericardial effusion. <Conclusion> The left ventricle is normal size. There is mild concentric left ventricular hypertrophy. The left ventricular function is normal. Bubble study done: no shunting detected.
--- NOTE | 2017-03-26 08:27 | CON ---
DATE: 03/25/2017 REASON FOR CONSULTATION: Cardiac evaluation admitted with acute CVA, status post TPA. BRIEF CLINICAL HISTORY: The patient is a 56-year-old male with a history of tobacco abuse and alcohol abuse. No history of hypertension or diabetes. Currently, not on medication. Admitted with acute CVA with left-sided weakness. Initially started numbness in the thigh and left arm and feeling funny sensation in the chest and later on, the patient had a weakness in the left arm. Came here, the patient was started back on TPA. PAST MEDICAL HISTORY: Denies any history of high blood pressure or diabetes. MEDICATIONS: Currently, not on medications. FAMILY HISTORY: Noncontributory. No history of coronary artery disease or diabetes or hypertension in the family. SOCIAL HISTORY: Currently, smokes a pack a day. Drinks a bottle of hard liquor every day. PHYSICAL EXAMINATION: VITAL SIGNS: Height of the patient 6 feet 3 inches ,weight of the patient 200 pounds, body mass index 37 kg/m2. Temperature afebrile, heart rate is 89, and blood pressure 146/106. HEENT: PERRLA intact. NECK: Supple. No carotid bruit. No thyromegaly. CHEST: Clear to auscultation. HEART: S1 and S2 regular. ABDOMEN: Soft. EXTREMITIES: Clubbing and cyanosis negative. LABORATORY DATA: WBC 5.0, hemoglobin 14.4, hematocrit 41.5, and platelet count 286. Chemistry show sodium 140, potassium 3.1, chloride 104, carbon dioxide 27, anion gap of 12, BUN 14, and creatinine 1.0. TSH 0.22. EKG showed normal sinus, LVH, no acute ST-T changes noted. IMPRESSION AND PLAN: A 56-year-old male with no significant past medical history, admitted with acute cerebrovascular accident, left-sided weakness, status post TPA. Currently on aspirin to be started from tomorrow. Continue atorvastatin. Continue beta-george. Anticoagulation as per neurology. We will get echo to asses left ventricular function and rule out patent foramen ovale. We will get the bubble study. Get the lipid profile, TSH, and hemoglobin A1c. Aggressive control of blood pressure with a goal is to keep systolic 140 and diastolic above 90. We will increase Norvasc to 5 mg from tomorrow and hydralazine and lisinopril 20 mg from tomorrow. We will follow with you. Thank you Dr. Duarte for providing me the opportunity in taking care of Negro Davis. Natalia Evans MD
--- NOTE | 2017-03-26 11:47 | CP.PCM.PN ---
<Belkis Back - Last Filed: 03/26/17 11:54> Subjective - Date & Time of Evaluation Date of Evaluation: 03/26/17 Time of Evaluation: 07:30 - Subjective Subjective: Hospitalist Service Progress Note Patient seen and examined at bedside. Per nursing no acute events overnight. Patient off nicardipine drip. Doing well, reports still having left arm weakness. Tolerating diet. Denies headaches, dizziness, cp, palpitations, sob, urinary symptoms, changes in bowel habits. Denies symptoms of alcohol withdrawal. Objective - Vital Signs/Intake and Output Vital Signs (last 24 hours): Temp Pulse Resp BP Pulse Ox 97.8 F 77 16 147/88 99 03/26/17 06:00 03/26/17 10:00 03/26/17 06:00 03/26/17 08:23 03/25/17 06:20 Intake and Output: 03/26/17 03/26/17 06:59 18:59 Intake Total 240 Output Total 500 Balance -260 - Medications Medications: Current Medications Amlodipine Besylate (Norvasc) 10 mg PO DAILY [facility] Last Admin: 03/26/17 09:54 Dose: Not Given Aspirin (Ecotrin) 81 mg PO DAILY [facility] Last Admin: 03/26/17 09:54 Dose: Not Given Atorvastatin Calcium (Lipitor) 40 mg PO DIN [facility] Last Admin: 03/25/17 17:31 Dose: 40 mg Chlordiazepoxide (Librium) 10 mg PO Q12 [facility] PRN Reason: Protocol Clopidogrel Bisulfate (Plavix) 75 mg PO DAILY [facility] Last Admin: 03/26/17 09:54 Dose: Not Given Folic Acid (Folic Acid) 1 mg PO DAILY [facility] Last Admin: 03/26/17 09:54 Dose: Not Given Hydralazine HCl (Apresoline) 10 mg IVP Q6 PRN PRN Reason: for sbp.170 and/or diasto.100 Sodium Chloride (Sodium Chloride 0.9%) 1,000 mls @ 75 mls/hr IV .[id number] [facility] Last Admin: 03/24/17 13:15 Dose: 75 mls/hr Labetalol HCl (Trandate) 200 mg PO Q12H [facility] Last Admin: 03/26/17 05:04 Dose: 200 mg Lisinopril (Zestril) 20 mg PO DAILY [facility] Last Admin: 03/26/17 09:54 Dose: 20 mg Lorazepam (Ativan) 1 mg IVP Q6 PRN; Protocol PRN Reason: Symptoms of alcohol withdrawl Metoprolol Tartrate (Lopressor) 5 mg IVP Q4H PRN PRN Reason: Systolic Blood Pressure Last Admin: 03/25/17 14:36 Dose: 5 mg Multivitamins/Minerals (Therapeutic-M Tab) 1 tab PO 0800 [facility] Last Admin: 03/26/17 08:23 Dose: 1 tab Nicotine (Nicoderm Cq) 1 patch TD DAILY [facility] Last Admin: 03/26/17 09:54 Dose: 1 patch Ondansetron HCl (Zofran Inj) 4 mg IVP Q6 PRN PRN Reason: Nausea/Vomiting Pantoprazole Sodium (Protonix Ec Tab) 40 mg PO 0600 [facility] Last Admin: 03/26/17 05:05 Dose: 40 mg Thiamine HCl (Vitamin B1 Tab) 100 mg PO DAILY [facility] Last Admin: 03/26/17 10:45 Dose: Not Given - Labs Labs: 03/26/17 05:20 03/26/17 05:20 PT 11.9 Seconds (9.9-11.8) H 03/24/17 05:00 INR 1.10 (0.93-1.08) H 03/24/17 05:00 APTT 26.8 Seconds (23.7-30.8) 03/24/17 05:00 - Constitutional Appears: Well, No Acute Distress - Head Exam Head Exam: ATRAUMATIC, NORMAL INSPECTION - Eye Exam Eye Exam: EOMI, Normal appearance Pupil Exam: NORMAL ACCOMODATION - ENT Exam ENT Exam: Mucous Membranes Moist - Neck Exam Neck Exam: Full ROM - Respiratory Exam Respiratory Exam: Clear to Ausculation Bilateral, NORMAL BREATHING PATTERN. absent: Rales, Rhonchi, Wheezes - Cardiovascular Exam Cardiovascular Exam: REGULAR RHYTHM, +S1, +S2 - GI/Abdominal Exam GI & Abdominal Exam: Soft, Normal Bowel Sounds. absent: Guarding, Rigid, Tenderness - Extremities Exam Extremities Exam: Calf Tenderness, Normal Inspection - Back Exam Back Exam: NORMAL INSPECTION - Neurological Exam Neurological Exam: Alert, Awake, Oriented x3 Neuro motor strength exam: Left Upper Extremity: 2/1, Right Upper Extremity: 5, Left Lower Extremity: 3, Right Lower Extremity: 5 - Psychiatric Exam Psychiatric exam: Normal Affect, Normal Mood - Skin Skin Exam: Dry, Normal Color, Warm Assessment and Plan - Assessment and Plan (Free Text) Assessment: 56 y/o with h/o alcohol and tobacco abuse brought in by EMS with weakness and numbness of the left upper and lower extremities. Patient was suspected to have stroke, code stroke was called, CT head w/o contrast was negative for hemorrhage. Patient was giving TPA with some improvement in the extremities ROM and was transferred to ICU for further monitoring. Plan: 1. Acute ischemic CVA (rule out embolic source) -VSS, afebrile -S/P TPA on 03/23/17 -MRI showing multiple acute infarcts -On ASA and Plavix -Echo showing left ventricle hypertrophy, no shunting defect -Cardiology on consult, f/u recommendations -Neurology on consult, f/u recommendations -PT recommending acute rehab for disposition, will f/u with case management 2. Hypertension -Currently Normotensive, off nicardipine drip -Had periods of elevated BPs yesterday, hydralazine added prn -Continue Labetolol -Lopressor prn -Norvasc and Lisinopril increased 3. Hypercholesterolemia -Cholesterol 217, LDL wnl -Continue Lipitor 4. Substance Abuse -UTOX positive for cocaine and cannabinoids -Encourage cessation 5. Low TSH, Free T4 -Likely secondary to sick euthryoid -Repeat thyroid levels wnl 6. Alcohol/Tobacco abuse -Librium taper - 10mg Q12H -Ativan prn -CIWA protocol -Nicotine patch -Will monitor for signs and symptoms of withdrawal 7. GI/DVT ppx -Protonix 40mg PO -SCDs <Yuniel Harrell - Last Filed: 03/27/17 16:46> Objective - Vital Signs/Intake and Output Vital Signs (last 24 hours): Temp Pulse Resp BP Pulse Ox 98.5 F 82 17 136/91 H 100 03/27/17 13:00 03/27/17 13:00 03/27/17 13:00 03/27/17 13:00 03/27/17 13:00 Intake and Output: 03/27/17 03/27/17 06:59 18:59 Intake Total 560 Output Total 400 Balance 160 - Medications Medications: Current Medications Amlodipine Besylate (Norvasc) 10 mg PO DAILY [facility] Last Admin: 03/27/17 09:24 Dose: 10 mg Aspirin (Ecotrin) 81 mg PO DAILY [facility] Last Admin: 03/27/17 09:25 Dose: 81 mg Atorvastatin Calcium (Lipitor) 40 mg PO DIN [facility] Last Admin: 03/26/17 17:28 Dose: 40 mg Chlordiazepoxide (Librium) 5 mg PO Q12H PRN PRN Reason: Agitation Clopidogrel Bisulfate (Plavix) 75 mg PO DAILY [facility] Last Admin: 03/27/17 09:25 Dose: 75 mg Folic Acid (Folic Acid) 1 mg PO DAILY [facility] Last Admin: 03/27/17 09:23 Dose: 1 mg Hydralazine HCl (Apresoline) 10 mg IVP Q6 PRN PRN Reason: for sbp.170 and/or diasto.100 Labetalol HCl (Trandate) 200 mg PO Q12H [facility] Last Admin: 03/27/17 05:36 Dose: 200 mg Lisinopril (Zestril) 20 mg PO DAILY [facility] Last Admin: 03/27/17 09:23 Dose: 20 mg Lorazepam (Ativan) 1 mg IVP Q6 PRN; Protocol PRN Reason: Symptoms of alcohol withdrawl Metoprolol Tartrate (Lopressor) 5 mg IVP Q4H PRN PRN Reason: Systolic Blood Pressure Last Admin: 03/25/17 14:36 Dose: 5 mg Multivitamins/Minerals (Therapeutic-M Tab) 1 tab PO 0800 [facility] Last Admin: 03/27/17 08:28 Dose: 1 tab Nicotine (Nicoderm Cq) 1 patch TD DAILY [facility] Last Admin: 03/27/17 09:25 Dose: 1 patch Ondansetron HCl (Zofran Inj) 4 mg IVP Q6 PRN PRN Reason: Nausea/Vomiting Pantoprazole Sodium (Protonix Ec Tab) 40 mg PO 0600 [facility] Last Admin: 03/27/17 05:36 Dose: 40 mg Thiamine HCl (Vitamin B1 Tab) 100 mg PO DAILY [facility] Last Admin: 03/27/17 09:25 Dose: 100 mg - Labs Labs: 03/27/17 06:00 03/27/17 06:00 PT 11.9 Seconds (9.9-11.8) H 03/24/17 05:00 INR 1.10 (0.93-1.08) H 03/24/17 05:00 APTT 26.8 Seconds (23.7-30.8) 03/24/17 05:00 Attending/Attestation - Attestation I have personally seen and examined this patient.: Yes I have fully participated in the care of the patient.: Yes I have reviewed all pertinent clinical information, including history, physical exam and plan: Yes Notes (Text): I have seen and examined the patient at bedside. Agree with the above note with the following additions/ exceptions: Briefly this is 56 year old male with history of alcohol, marijuana and tobacco abuse who came for eval of Left sided weakness and found to have Acute CVA possibly embolic in nature.He has no underlying known heart disease and no arrythmia was noted. He was given tpa upon presentation. He was started on asa and plavix . Continue lipitor. Cardiology consult appreciated. Echo with bubble study showed no shunting defect. Counselling provided regarding substance abuse. BP has improved. Continue lopressor, labetalol , lisinopril and norvasc. Continue librium taper. PT eval pending. Upon discharge patient will follow up with [facility] clinic. Dr Yuniel Harrell
--- NOTE | 2017-03-26 13:57 | PN ---
DATE: 03/26/2017 REASON FOR CONSULTATION: Cardiac evaluation admitted with acute cerebrovascular accident, status post tissue plasminogen activator. SUBJECTIVE: Denies any chest pain, shortness of breath, any palpitation, but feels still left arm is weak especially more from the shoulder and elbow. He still can move the fingers. OBJECTIVE: GENERAL: Not in apparent distress, lying flat, eating with right hand, left arm is little bit lying on the bedside flaccid. VITAL SIGNS: As follows, temperature is afebrile, heart rate is 77, and blood pressure is 147/88. HEENT: PERRLA intact. NECK: Supple. No carotid bruits or thyromegaly. CHEST: Clear to auscultation. HEART: S1 and S2 regular. ABDOMEN: Soft. EXTREMITIES: Clubbing and cyanosis negative. LABORATORY DATA: Blood workup; WBC of 4.7, hemoglobin of 14.8, hematocrit of 41.9, and platelet count of 269. Chemistry shows sodium of 140, potassium of 3.6, chloride of 106, carbon dioxide of 25, anion gap of 13, BUN of 12, and creatinine of 1.1. DIAGNOSTIC DATA: The patient had echocardiography done yesterday read by Dr. Tafoya shows normal LVH, normal LV function, bubble study done, new shunting detected. Mitral valve structure reported normal tricuspid valve reported, normal, trace tricuspid regurgitation, RV systolic pressure of 26 and calculated ejection fraction of 60%. IMPRESSION: A 56-year-old male, history of active tobacco with history of alcohol abuse, admitted with acute cerebrovascular accident, status post tissue plasminogen activator, history of some residual left upper extremity weakness, and left lower extremity improved. RECOMMENDATIONS: Continue systolic around 114, diastolic below 90, goal is to keep systolic 190 and diastolic below 90. We will put Norvasc to 10 mg daily. Continue Plavix. Continue as per neurology. Continue hydralazine. We will follow with you. Continue atorvastatin. His lipid profile shows hyperlipidemia. Complete abstinence of alcohol. Complete cessation of smoking on discharge. We will follow with you. Thank you Dr. Harrell for providing me the opportunity in taking care of Negro Davis. Natalia Evans MD
[2017-03-27] MEDS: Pantoprazole 40 mg EC Tab PO SCH (05:36)
[2017-03-27 07:10] LABS: BASO # 0.03 K/mm3 (0.0-2.0); BASO % 0.7 % (0.0-3.0); EOS # 0.5 (0.0-0.7); EOS % 11.3 % (1.5-5.0); GRAN # 1.97 (1.4-6.5); GRAN % 44.7 % (50.0-68.0); HEMATOCRIT 39.9 % (42.0-52.0); LYMPH # 1.5 (1.2-3.4); LYMPH % 33.3 % (22.0-35.0); MEAN CELL VOLUME 89.3 fl (80.0-105.0); MEAN CORPUSCULAR HEMOGLOBIN 31.5 pg (25.0-35.0); MEAN CORPUSCULAR HGB CONC 35.3 g/dl (31.0-37.0); MONO # 0.4 (0.1-0.6); RED CELL DISTRIBUTION WIDTH 13.2 % (11.5-14.5); WHITE BLOOD COUNT 4.4 10^3/ul (4.5-11.0)
[2017-03-27 07:26] LABS: BLOOD UREA NITROGEN 11 mg/dL (7-21); CALCIUM 8.9 mg/dL (8.4-10.5); CARBON DIOXIDE 28 mmol/L (21-33); CHLORIDE 104 mmol/L (98-107); GFR AFRICAN-AMERICAN > 60; GLUCOSE,RANDOM 94 mg/dL (70-110); MAGNESIUM 1.8 mg/dL (1.7-2.2); PHOSPHOROUS 3.4 mg/dL (2.5-4.5); POTASSIUM 3.5 mmol/L (3.6-5.0); SODIUM 142 mmol/L (132-148)
[2017-03-27] MEDS ORDERED: Potassium Chloride 40 mEq/30 ml LIQ UD PO ONE (07:50)
[2017-03-27] MEDS: Multivitamin With Minerals Tab PO SCH (08:28)
--- NOTE | 2017-03-27 13:16 | PN ---
DATE: 03/27/2017 REASON FOR CONSULTATION: Followup cardiac evaluation. Admitted with acute CVA. He is status post TPA with residual left upper extremity weakness. SUBJECTIVE: The patient denies any chest pain, shortness of breath, any palpitations, but complained of weakness of left upper extremity more so from the shoulder, can still move the fingers. OBJECTIVE: GENERAL: Not in apparent distress. Left arm a little flaccid. Eating the breakfast with the right hand. VITAL SIGNS: Temperature afebrile, heart rate 78, blood pressure 142/84. HEENT: PERRLA. Extraocular muscles intact. NECK: Supple. No carotid bruit. No thyromegaly. CHEST: Clear to auscultation. HEART: S1 and S2 regular. ABDOMEN: Soft. EXTREMITIES: Clubbing and cyanosis negative. LABORATORY DATA: Blood workup as follows; WBC 4.5, hemoglobin 14, hematocrit 39.9, and platelet count 275. Chemistry shows sodium 142, potassium 3.5, chloride 104, carbon dioxide 28, anion gap of 14. BUN 11. Creatinine 1.1. Calcium 8.9, phosphorus 3.4, magnesium 1.9. The patient had echocardiography done yesterday by Dr. Tafoya, normal LV function. Bubble study was negative for shunting of PFO. Mitral valve structure reported normal, tricuspid valve trace TR essentially normal. RV systolic pressure 26 and ejection fraction calculated 60%. IMPRESSION: A 56-year-old male with history of active tobacco abuse, history of heavy alcohol abuse. Currently, not on medication. Acute CVA status post tissue plasminogen activator, history of some residual left lower extremity weakness with a significant weakness of upper left extremity more so on the shoulder and the patient can move the fingers. RECOMMENDATION: Continue aspirin, continue Plavix, continue antihypertensive medication. Goal is to keep the systolic pressure less than 140 and diastolic less than 85 to 90. Continue aspirin and Plavix. Continue hydralazine p.r.n. Continue atorvastatin. Complete abstinence of alcohol, complete cessation of smoking. On discharge, we will follow with you. Yesterday, typo was continue systolic around 114 and diastolic 90 was a typo. I suggest to keep systolic blood pressure less than 140 and diastolic less than 85 to 90. We will follow with you. In the last 24 hours, blood pressure is significantly under control, so we will continue amlodipine, increase to 10 mg daily, lisinopril 20 and we will monitor the p.r.n. hydralazine if needed. Continue aspirin, continue Plavix. Continue atorvastatin. We will follow with you. Thank you Dr. Harrell for providing me the opportunity in taking care of the patient, Negro Davis. Natalia Evans MD
--- NOTE | 2017-03-27 14:42 | CP.PCM.PN ---
<Belkis Back - Last Filed: 03/27/17 14:47> Subjective - Date & Time of Evaluation Date of Evaluation: 03/27/17 Time of Evaluation: 07:10 - Subjective Subjective: Hospitalist Service Progress Note: Patient seen and examined at bedside. Per nursing, no acute events overnight. Patient states that weakness is improving. Offers no complaints at this time. Ambulating and tolerating diet. Denies headaches, dizziness, cp, palpitations, sob, urinary symptoms. Denies symptoms of alcohol withdrawal. Objective - Vital Signs/Intake and Output Vital Signs (last 24 hours): Temp Pulse Resp BP Pulse Ox 98.2 F 76 20 151/79 H 98 03/27/17 12:20 03/27/17 13:00 03/27/17 13:00 03/27/17 12:01 03/27/17 13:00 Intake and Output: 03/27/17 03/27/17 06:59 18:59 Intake Total 560 Output Total 400 Balance 160 - Medications Medications: Current Medications Amlodipine Besylate (Norvasc) 10 mg PO DAILY [facility] Last Admin: 03/27/17 09:24 Dose: 10 mg Aspirin (Ecotrin) 81 mg PO DAILY [facility] Last Admin: 03/27/17 09:25 Dose: 81 mg Atorvastatin Calcium (Lipitor) 40 mg PO DIN [facility] Last Admin: 03/26/17 17:28 Dose: 40 mg Chlordiazepoxide (Librium) 5 mg PO Q12H PRN PRN Reason: Agitation Clopidogrel Bisulfate (Plavix) 75 mg PO DAILY [facility] Last Admin: 03/27/17 09:25 Dose: 75 mg Folic Acid (Folic Acid) 1 mg PO DAILY [facility] Last Admin: 03/27/17 09:23 Dose: 1 mg Hydralazine HCl (Apresoline) 10 mg IVP Q6 PRN PRN Reason: for sbp.170 and/or diasto.100 Labetalol HCl (Trandate) 200 mg PO Q12H [facility] Last Admin: 03/27/17 05:36 Dose: 200 mg Lisinopril (Zestril) 20 mg PO DAILY [facility] Last Admin: 03/27/17 09:23 Dose: 20 mg Lorazepam (Ativan) 1 mg IVP Q6 PRN; Protocol PRN Reason: Symptoms of alcohol withdrawl Metoprolol Tartrate (Lopressor) 5 mg IVP Q4H PRN PRN Reason: Systolic Blood Pressure Last Admin: 03/25/17 14:36 Dose: 5 mg Multivitamins/Minerals (Therapeutic-M Tab) 1 tab PO 0800 [facility] Last Admin: 03/27/17 08:28 Dose: 1 tab Nicotine (Nicoderm Cq) 1 patch TD DAILY [facility] Last Admin: 03/27/17 09:25 Dose: 1 patch Ondansetron HCl (Zofran Inj) 4 mg IVP Q6 PRN PRN Reason: Nausea/Vomiting Pantoprazole Sodium (Protonix Ec Tab) 40 mg PO 0600 [facility] Last Admin: 03/27/17 05:36 Dose: 40 mg Thiamine HCl (Vitamin B1 Tab) 100 mg PO DAILY [facility] Last Admin: 03/27/17 09:25 Dose: 100 mg - Labs Labs: 03/27/17 06:00 03/27/17 06:00 PT 11.9 Seconds (9.9-11.8) H 03/24/17 05:00 INR 1.10 (0.93-1.08) H 03/24/17 05:00 APTT 26.8 Seconds (23.7-30.8) 03/24/17 05:00 - Constitutional Appears: Well, No Acute Distress - Head Exam Head Exam: ATRAUMATIC, NORMAL INSPECTION - Eye Exam Eye Exam: EOMI, Normal appearance Pupil Exam: NORMAL ACCOMODATION - ENT Exam ENT Exam: Mucous Membranes Moist - Neck Exam Neck Exam: Full ROM - Respiratory Exam Respiratory Exam: Clear to Ausculation Bilateral, NORMAL BREATHING PATTERN. absent: Rales, Rhonchi, Wheezes - GI/Abdominal Exam GI & Abdominal Exam: Soft, Tenderness, Normal Bowel Sounds. absent: Guarding, Rigid - Extremities Exam Extremities Exam: Normal Inspection. 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 Patient was suspected to have stroke, code stroke was called, CT head w/o contrast was negative for hemorrhage. Patient was giving TPA with some improvement in the extremities ROM and was transferred to ICU for further monitoring. Plan: 1. Acute ischemic CVA (rule out embolic source) -VSS, afebrile -S/P TPA on 03/23/17 -MRI showing multiple acute infarcts -On ASA and Plavix -Echo showing left ventricle hypertrophy, no shunting defect -Will transfer to med/surg today -Cardiology on consult, f/u recommendations -Neurology on consult, f/u recommendations -PT recommending acute rehab for disposition, however does not have insurance 2. Hypertension -Currently Normotensive -Had periods of elevated BPs yesterday, -Hydralazine, metoprolol prn -Continue Labetolol, Norvasc and Lisinopril 3. Hypercholesterolemia -Cholesterol 217, LDL wnl -Continue Lipitor 4. Substance Abuse -UTOX positive for cocaine and cannabinoids -Encourage cessation 5. Low TSH, Free T4 -Likely secondary to sick euthryoid -Repeat thyroid levels wnl 6. Alcohol/Tobacco abuse -Librium taper - 5mg Q12H prn -Ativan prn -CIWA protocol -Nicotine patch -Will monitor for signs and symptoms of withdrawal 7. Hypokalemia -Potassium 3.5, repleted -Continue to monitor GI/DVT ppx -Protonix 40mg PO -SCDs <Yuniel Harrell - Last Filed: 03/27/17 16:54> Objective - Vital Signs/Intake and Output Vital Signs (last 24 hours): Temp Pulse Resp BP Pulse Ox 98.5 F 82 17 136/91 H 100 03/27/17 13:00 03/27/17 13:00 03/27/17 13:00 03/27/17 13:00 03/27/17 13:00 Intake and Output: 03/27/17 03/27/17 06:59 18:59 Intake Total 560 Output Total 400 Balance 160 - Medications Medications: Current Medications Amlodipine Besylate (Norvasc) 10 mg PO DAILY [facility] Last Admin: 03/27/17 09:24 Dose: 10 mg Aspirin (Ecotrin) 81 mg PO DAILY [facility] Last Admin: 03/27/17 09:25 Dose: 81 mg Atorvastatin Calcium (Lipitor) 40 mg PO DIN [facility] Last Admin: 03/26/17 17:28 Dose: 40 mg Chlordiazepoxide (Librium) 5 mg PO Q12H PRN PRN Reason: Agitation Clopidogrel Bisulfate (Plavix) 75 mg PO DAILY [facility] Last Admin: 03/27/17 09:25 Dose: 75 mg Folic Acid (Folic Acid) 1 mg PO DAILY [facility] Last Admin: 03/27/17 09:23 Dose: 1 mg Hydralazine HCl (Apresoline) 10 mg IVP Q6 PRN PRN Reason: for sbp.170 and/or diasto.100 Labetalol HCl (Trandate) 200 mg PO Q12H [facility] Last Admin: 03/27/17 05:36 Dose: 200 mg Lisinopril (Zestril) 20 mg PO DAILY [facility] Last Admin: 03/27/17 09:23 Dose: 20 mg Lorazepam (Ativan) 1 mg IVP Q6 PRN; Protocol PRN Reason: Symptoms of alcohol withdrawl Metoprolol Tartrate (Lopressor) 5 mg IVP Q4H PRN PRN Reason: Systolic Blood Pressure Last Admin: 03/25/17 14:36 Dose: 5 mg Multivitamins/Minerals (Therapeutic-M Tab) 1 tab PO 0800 [facility] Last Admin: 03/27/17 08:28 Dose: 1 tab Nicotine (Nicoderm Cq) 1 patch TD DAILY [facility] Last Admin: 03/27/17 09:25 Dose: 1 patch Ondansetron HCl (Zofran Inj) 4 mg IVP Q6 PRN PRN Reason: Nausea/Vomiting Pantoprazole Sodium (Protonix Ec Tab) 40 mg PO 0600 [facility] Last Admin: 03/27/17 05:36 Dose: 40 mg Thiamine HCl (Vitamin B1 Tab) 100 mg PO DAILY [facility] Last Admin: 03/27/17 09:25 Dose: 100 mg - Labs Labs: 03/27/17 06:00 03/27/17 06:00 PT 11.9 Seconds (9.9-11.8) H 03/24/17 05:00 INR 1.10 (0.93-1.08) H 03/24/17 05:00 APTT 26.8 Seconds (23.7-30.8) 03/24/17 05:00 Attending/Attestation - Attestation I have personally seen and examined this patient.: Yes I have fully participated in the care of the patient.: Yes I have reviewed all pertinent clinical information, including history, physical exam and plan: Yes Notes (Text): I have seen and examined the patient at bedside. Agree with the above note with the following additions/ exceptions: Briefly this is 56 year old male with history of alcohol, marijuana and tobacco abuse who came for eval of Left sided weakness and found to have Acute CVA possibly embolic in nature.He has no underlying known heart disease and no arrhythmia was noted. He was given tpa upon presentation. No underlying abnormalities was found. Continue asa, plavix and lipitor. Echo with bubble study showed no shunting defect. Counselling provided regarding substance abuse. BP has improved. Continue lopressor, labetalol, lisinopril and norvasc. Continue librium taper. PT recommended acute rehab. Upon discharge patient will follow up with [facility] clinic. Dr Yuniel Harrell
[2017-03-27 17:12] VITALS: RESP 20
[2017-03-28] MEDS: Pantoprazole 40 mg EC Tab PO SCH (06:22)
[2017-03-28 06:35] LABS: BASO # 0.04 K/mm3 (0.0-2.0); BASO % 0.8 % (0.0-3.0); EOS # 0.6 (0.0-0.7); EOS % 11.7 % (1.5-5.0); GRAN # 2.22 (1.4-6.5); GRAN % 44.2 % (50.0-68.0); HEMATOCRIT 42.1 % (42.0-52.0); LYMPH # 1.6 (1.2-3.4); LYMPH % 32.4 % (22.0-35.0); MEAN CELL VOLUME 90.3 fl (80.0-105.0); MEAN CORPUSCULAR HEMOGLOBIN 30.7 pg (25.0-35.0); MEAN PLATELET VOLUME 10.2 fl (7.0-11.0); MONO # 0.6 (0.1-0.6); MONO % 10.9 % (1.0-6.0); RED CELL DISTRIBUTION WIDTH 13.4 % (11.5-14.5)
[2017-03-28 07:09] LABS: ALB/GLOB RATIO 1.3 (1.1-1.8); ALKALINE PHOSPHATASE 43 U/L (38-126); ALT/SGPT 25 U/L (7-56); AST/SGOT 27 U/L (17-59); BILIRUBIN,TOTAL 0.7 mg/dL (0.2-1.3); BLOOD UREA NITROGEN 12 mg/dL (7-21); CALCIUM 9.1 mg/dL (8.4-10.5); CARBON DIOXIDE 27 mmol/L (21-33); CHLORIDE 105 mmol/L (98-107); GFR AFRICAN-AMERICAN > 60; GLUCOSE,RANDOM 93 mg/dL (70-110); MAGNESIUM 1.7 mg/dL (1.7-2.2); PHOSPHOROUS 3.7 mg/dL (2.5-4.5); POTASSIUM 3.8 mmol/L (3.6-5.0); SODIUM 143 mmol/L (132-148); TOTAL PROTEIN 6.7 g/dL (5.8-8.3)
[2017-03-28] MEDS: Multivitamin With Minerals Tab PO SCH (08:34)
--- NOTE | 2017-03-28 11:50 | CP.PCM.PN ---
<Belkis Back - Last Filed: 03/28/17 17:01> Subjective - Date & Time of Evaluation Date of Evaluation: 03/27/17 Time of Evaluation: 07:20 - Subjective Subjective: Hospitalist Service Progress Note: Patient seen and examined at bedside. Per nursing no acute events overnight. States that L arm weakness is still the same. Offers no complaints at this time. Denies headaches, dizziness, cp, palpitations, sob, urinary symptoms, changes in bowel habits. Objective - Vital Signs/Intake and Output Vital Signs (last 24 hours): Temp Pulse Resp BP Pulse Ox 98.2 F 78 20 140/86 100 03/28/17 09:01 03/28/17 09:45 03/28/17 09:01 03/28/17 09:46 03/28/17 09:01 Intake and Output: 03/28/17 03/28/17 06:59 18:59 Intake Total 840 Output Total 700 Balance 140 - Medications Medications: Current Medications Amlodipine Besylate (Norvasc) 10 mg PO DAILY [facility] Last Admin: 03/28/17 09:46 Dose: 10 mg Aspirin (Ecotrin) 81 mg PO DAILY [facility] Last Admin: 03/28/17 09:45 Dose: 81 mg Atorvastatin Calcium (Lipitor) 40 mg PO DIN [facility] Last Admin: 03/27/17 18:24 Dose: 40 mg Chlordiazepoxide (Librium) 5 mg PO Q12H PRN PRN Reason: Agitation Clopidogrel Bisulfate (Plavix) 75 mg PO DAILY [facility] Last Admin: 03/28/17 09:45 Dose: 75 mg Folic Acid (Folic Acid) 1 mg PO DAILY [facility] Last Admin: 03/28/17 09:45 Dose: 1 mg Hydralazine HCl (Apresoline) 10 mg IVP Q6 PRN PRN Reason: for [id number] and/or diasto.100 Labetalol HCl (Trandate) 200 mg PO 0600,1800 [facility] Last Admin: 03/28/17 06:22 Dose: 200 mg Lisinopril (Zestril) 20 mg PO DAILY [facility] Last Admin: 03/28/17 09:45 Dose: 20 mg Lorazepam (Ativan) 1 mg IVP Q6 PRN; Protocol PRN Reason: Symptoms of alcohol withdrawl Metoprolol Tartrate (Lopressor) 5 mg IVP Q4H PRN PRN Reason: Systolic Blood Pressure Last Admin: 03/25/17 14:36 Dose: 5 mg Multivitamins/Minerals (Therapeutic-M Tab) 1 tab PO 0800 [facility] Last Admin: 03/28/17 08:34 Dose: 1 tab Nicotine (Nicoderm Cq) 1 patch TD DAILY [facility] Last Admin: 03/28/17 09:45 Dose: 1 patch Ondansetron HCl (Zofran Inj) 4 mg IVP Q6 PRN PRN Reason: Nausea/Vomiting Pantoprazole Sodium (Protonix Ec Tab) 40 mg PO 0600 [facility] Last Admin: 03/28/17 06:22 Dose: 40 mg Thiamine HCl (Vitamin B1 Tab) 100 mg PO DAILY [facility] Last Admin: 03/28/17 09:45 Dose: 100 mg - Labs Labs: 03/28/17 06:10 03/28/17 06:10 PT 11.9 Seconds (9.9-11.8) H 03/24/17 05:00 INR 1.10 (0.93-1.08) H 03/24/17 05:00 APTT 26.8 Seconds (23.7-30.8) 03/24/17 05:00 - Constitutional Appears: Well, No Acute Distress - Head Exam Head Exam: ATRAUMATIC, NORMAL INSPECTION - Eye Exam Eye Exam: EOMI, Normal appearance Pupil Exam: NORMAL ACCOMODATION - ENT Exam ENT Exam: Mucous Membranes Moist - Neck Exam Neck Exam: Full ROM - Respiratory Exam Respiratory Exam: Clear to Ausculation Bilateral, NORMAL BREATHING PATTERN. absent: Rales, Rhonchi, Wheezes - Cardiovascular Exam Cardiovascular Exam: REGULAR RHYTHM, +S1, +S2 - GI/Abdominal Exam GI & Abdominal Exam: Soft, Normal Bowel Sounds. absent: Guarding, Rigid, Tenderness - Extremities Exam Extremities Exam: Normal Inspection. absent: Calf Tenderness - Back Exam Back Exam: NORMAL INSPECTION - Neurological Exam Neurological Exam: Alert, Awake, Oriented x3 Neuro motor strength exam: Left Upper Extremity: 2/1, Right Upper Extremity: 5, Left Lower Extremity: 4, Right Lower Extremity: 5 - Psychiatric Exam Psychiatric exam: Normal Affect, Normal Mood - Skin Skin Exam: Dry, Normal Color, Warm Assessment and Plan - Assessment and Plan (Free Text) Assessment: 56 y/o with h/o alcohol and tobacco abuse brought in by EMS with weakness and numbness of the left upper and lower extremities. Patient was suspected to have stroke, code stroke was called, CT head w/o contrast was negative for hemorrhage. Patient was giving TPA with some improvement in the extremities ROM and was transferred to ICU for further monitoring. Plan: 1. Acute ischemic CVA -VSS, afebrile -S/P TPA on 03/23/17 -MRI showing multiple acute infarcts -On ASA and Plavix -Echo showing left ventricle hypertrophy, no shunting defect -Cardiology on consult, f/u recommendations -Neurology on consult, f/u recommendations -PT to evaluate for disposition and stair training, patient has stairs at home 2. Hypertension -Currently Normotensive -Has periods of elevated BPs -Hydralazine, metoprolol prn -Continue Labetolol, Norvasc -Increased Lisinopril to 30mg daily 3. Hypercholesterolemia -Cholesterol 217, LDL wnl -Continue Lipitor 4. Substance Abuse -UTOX positive for cocaine and cannabinoids -Encourage cessation 5. Low TSH, Free T4 -Likely secondary to sick euthryoid -Repeat thyroid levels wnl 6. Alcohol/Tobacco abuse -Librium taper - 5mg Q12H prn -Ativan prn -CIWA protocol -Nicotine patch -Will monitor for signs and symptoms of withdrawal 7. Hypokalemia -Potassium 3.8 -Continue to monitor GI/DVT ppx -Protonix 40mg PO -SCDs <Yuniel Harrell - Last Filed: 03/29/17 17:27> Objective - Vital Signs/Intake and Output Vital Signs (last 24 hours): Temp Pulse Resp BP Pulse Ox 98.8 F 76 20 156/72 H 98 03/28/17 17:46 03/29/17 05:24 03/28/17 17:46 03/29/17 09:21 03/28/17 17:46 Intake and Output: 03/29/17 03/29/17 06:59 18:59 Intake Total 940 Balance 940 - Labs Labs: 03/29/17 06:30 03/29/17 06:30 PT 11.9 Seconds (9.9-11.8) H 03/24/17 05:00 INR 1.10 (0.93-1.08) H 03/24/17 05:00 APTT 26.8 Seconds (23.7-30.8) 03/24/17 05:00 Attending/Attestation - Attestation I have personally seen and examined this patient.: Yes I have fully participated in the care of the patient.: Yes I have reviewed all pertinent clinical information, including history, physical exam and plan: Yes Notes (Text): I have seen and examined the patient at bedside. Agree with the above note with the following additions/ exceptions: Briefly this is 56 year old male with history of alcohol, marijuana and tobacco abuse who came for eval of Left sided weakness and found to have Acute CVA possibly embolic in nature. He has no underlying known heart disease and no arrhythmia was noted. He was given tpa upon presentation. No underlying abnormalities was found. Continue asa, plavix and lipitor. Echo with bubble study showed no shunting defect. Counselling provided regarding substance abuse. BP has improved. Continue lopressor, labetalol, lisinopril and norvasc. Continue librium taper. PT recommended acute rehab. Discussed with CM. Upon discharge patient will follow up with [facility] clinic. Dr Yuniel Harrell
[2017-03-28] MEDS ORDERED: Potassium Chloride 20 mEq ER Tab PO ONE (15:55)
[2017-03-28 17:47] VITALS: TEMP 98.8; O2SAT 98
--- NOTE | 2017-03-28 21:21 | PN ---
DATE: 03/28/2017 REASON FOR CONSULTATION: Cardiac evaluation, admitted with acute cerebrovascular accident, he is status post TPA, and residual left upper extremity weakness. SUBJECTIVE: Denies any chest pain, shortness of breath or any palpitation. Complains of still left upper extremity is weak at the shoulder and upper arm and forearm, but can move the fingers. OBJECTIVE: GENERAL: Lying on the bed, not in apparent distress. VITAL SIGNS: Temperature afebrile, heart rate 78, and blood pressure 140/86. HEENT: PERRLA. Extraocular muscles intact. NECK: Supple. No carotid bruits or thyromegaly. CHEST: Clear to auscultation. HEART: S1 and S2, regular. ABDOMEN: Soft. EXTREMITIES: Clubbing and cyanosis negative. LABORATORY DATA: Blood workup as follows: WBC 5, hemoglobin 14.3, hematocrit 42.1, and platelet count 283. Chemistry shows sodium 143, potassium 3.0, chloride 105, carbon dioxide 27, anion gap of 15, BUN 12 and creatinine 1.1. IMPRESSION: Acute cerebrovascular accident with left-sided weakness more so on upper extremities than lower extremities, history of tobacco abuse, history of alcohol abuse, before came in was not on medication. Echo did not show any patent foramen ovale, negative study for patent foramen ovale. Mitral valve structure appears normal. essentially normal. Tricuspid valve appeared normal. Essentially normal echo. RECOMMENDATIONS: Continue aspirin, continue Plavix, continue antihypertensive medication, keep systolic blood pressure less than 140 and diastolic less than 85, continue hydralazine p.r.n., continue aspirin, continue atorvastatin, continue amlodipine 5. We will increase lisinopril 30 mg daily from tomorrow. We will follow with you. We will give 20 of KCL to supplement. Thank you Dr. Harrell for providing me the opportunity in taking care of Negro Davis. Natalia Evans MD
[2017-03-29] MEDS: Pantoprazole 40 mg EC Tab PO SCH (05:24)
[2017-03-29 05:30] VITALS: PULSE 76
[2017-03-29 07:18] LABS: BASO # 0.08 K/mm3 (0.0-2.0); BASO % 1.5 % (0.0-3.0); EOS # 0.7 (0.0-0.7); GRAN # 2.55 (1.4-6.5); GRAN % 48.6 % (50.0-68.0); HEMATOCRIT 42.7 % (42.0-52.0); LYMPH # 1.3 (1.2-3.4); LYMPH % 25.3 % (22.0-35.0); MEAN CELL VOLUME 90.9 fl (80.0-105.0); MEAN CORPUSCULAR HEMOGLOBIN 30.4 pg (25.0-35.0); MEAN CORPUSCULAR HGB CONC 33.5 g/dl (31.0-37.0); MEAN PLATELET VOLUME 9.9 fl (7.0-11.0); MONO # 0.6 (0.1-0.6); MONO % 11.6 % (1.0-6.0); RED CELL DISTRIBUTION WIDTH 13.4 % (11.5-14.5); WHITE BLOOD COUNT 5.3 10^3/ul (4.5-11.0)
[2017-03-29 07:55] LABS: BLOOD UREA NITROGEN 13 mg/dL (7-21); CALCIUM 9.2 mg/dL (8.4-10.5); CARBON DIOXIDE 26 mmol/L (21-33); CHLORIDE 106 mmol/L (98-107); GFR AFRICAN-AMERICAN > 60; GLUCOSE,RANDOM 96 mg/dL (70-110); PHOSPHOROUS 3.7 mg/dL (2.5-4.5); SODIUM 142 mmol/L (132-148)
[2017-03-29 08:18] LABS: MAGNESIUM 1.8 mg/dL (1.7-2.2)
[2017-03-29] MEDS: Multivitamin With Minerals Tab PO SCH (09:21)
[2017-03-29 09:25] VITALS: BP 156/72
--- NOTE | 2017-03-29 16:12 | CP.PCM.DIS ---
<Belkis Back - Last Filed: 03/29/17 17:23> Provider - Provider Date of Admission: 03/23/17 22:11 Attending physician: Yuniel Harrell MD Time Spent in preparation of Discharge (in minutes): 34 Hospital Course - Lab Results Lab Results: Micro Results 03/23/17 23:40 Nose MRSA Culture (Admit) - Final MRSA NOT DETECTED Most Recent Lab Values WBC 5.3 10^3/ul (4.5-11.0) 03/29/17 06:30 RBC 4.70 10^6/uL (3.5-6.1) 03/29/17 06:30 Hgb 14.3 g/dL (14.0-18.0) 03/29/17 06:30 Hct 42.7 % (42.0-52.0) 03/29/17 06:30 MCV 90.9 fl (80.0-105.0) 03/29/17 06:30 MCH 30.4 pg (25.0-35.0) 03/29/17 06:30 MCHC 33.5 g/dl (31.0-37.0) 03/29/17 06:30 RDW 13.4 % (11.5-14.5) 03/29/17 06:30 Plt Count 291 10^3/uL (120.0-450.0) 03/29/17 06:30 MPV 9.9 fl (7.0-11.0) 03/29/17 06:30 Gran % 48.6 % (50.0-68.0) L 03/29/17 06:30 Lymph % (Auto) 25.3 % (22.0-35.0) 03/29/17 06:30 Karnes % (Auto) 11.6 % (1.0-6.0) H 03/29/17 06:30 Eos % (Auto) 13.0 % (1.5-5.0) H 03/29/17 06:30 Baso % (Auto) 1.5 % (0.0-3.0) 03/29/17 06:30 Gran # 2.55 (1.4-6.5) 03/29/17 06:30 Lymph # 1.3 (1.2-3.4) 03/29/17 06:30 Karnes # 0.6 (0.1-0.6) 03/29/17 06:30 Eos # 0.7 (0.0-0.7) 03/29/17 06:30 Baso # 0.08 K/mm3 (0.0-2.0) 03/29/17 06:30 PT 11.9 Seconds (9.9-11.8) H 03/24/17 05:00 INR 1.10 (0.93-1.08) H 03/24/17 05:00 APTT 26.8 Seconds (23.7-30.8) 03/24/17 05:00 Sodium 142 mmol/L (132-148) 03/29/17 06:30 Potassium 4.0 mmol/L (3.6-5.0) 03/29/17 06:30 Chloride 106 mmol/L (98-107) 03/29/17 06:30 Carbon Dioxide 26 mmol/L (21-33) 03/29/17 06:30 Anion Gap 14 (10-20) 03/29/17 06:30 BUN 13 mg/dL (7-21) 03/29/17 06:30 Creatinine 1.1 mg/dL (0.5-1.4) 03/29/17 06:30 Est GFR ( Amer) > 60 03/29/17 06:30 Est GFR (Non-Af Amer) > 60 03/29/17 06:30 POC Glucose (mg/dL) 145 mg/dL (65-110) H 03/27/17 11:12 Random Glucose 96 mg/dL (70-110) 03/29/17 06:30 Hemoglobin A1c 5.8 % (4.2-6.5) 03/23/17 21:30 Calcium 9.2 mg/dL (8.4-10.5) 03/29/17 06:30 Phosphorus 3.7 mg/dL (2.5-4.5) 03/29/17 06:30 Magnesium 1.8 mg/dL (1.7-2.2) 03/29/17 06:30 Total Bilirubin 0.7 mg/dL (0.2-1.3) 03/28/17 06:10 AST 27 U/L (17-59) 03/28/17 06:10 ALT 25 U/L (7-56) 03/28/17 06:10 Alkaline Phosphatase 43 U/L (38-126) 03/28/17 06:10 Troponin I < 0.01 ng/mL 03/23/17 21:30 Total Protein 6.7 g/dL (5.8-8.3) 03/28/17 06:10 Albumin 3.8 g/dL (3.0-4.8) 03/28/17 06:10 Globulin 2.9 gm/dL 03/28/17 06:10 Albumin/Globulin Ratio 1.3 (1.1-1.8) 03/28/17 06:10 Triglycerides 74 mg/dL (35-160) 03/23/17 21:30 Cholesterol 217 mg/dL (130-200) H 03/23/17 21:30 LDL Cholesterol Direct 105 mg/dL (0-129) 03/23/17 21:30 HDL Cholesterol 118 mg/dL (29-60) H 03/23/17 21:30 Free T4 0.88 ng/dL (0.78-2.19) 03/26/17 05:20 Free T3 pg/mL 3.73 pg/mL (2.77-5.27) 03/26/17 06:30 TSH 3rd Generation 0.95 mIU/mL (0.46-4.68) 03/26/17 05:20 Urine Color Dark yellow (YELLOW) 03/25/17 01:40 Urine Appearance Slight-cloudy (CLEAR) 03/25/17 01:40 Urine pH 6.0 (4.7-8.0) 03/25/17 01:40 Ur Specific Frost 1.010 (1.005-1.035) 03/25/17 01:40 Urine Protein Negative mg/dL (<30 mg/dL) 03/25/17 01:40 Urine Glucose (UA) Negative mg/dL (NEGATIVE) 03/25/17 01:40 Urine Ketones Negative mg/dL (NEGATIVE) 03/25/17 01:40 Urine Blood Small (NEGATIVE) H 03/25/17 01:40 Urine Nitrate Negative (NEGATIVE) 03/25/17 01:40 Urine Bilirubin Negative (NEGATIVE) 03/25/17 01:40 Urine Urobilinogen 0.2 E.U./dL (<1 E.U./dL) 03/25/17 01:40 Ur Leukocyte Esterase Negative Hussein/uL (NEGATIVE) 03/25/17 01:40 Urine RBC 1 - 3 /hpf (0-2) 03/25/17 01:40 Urine WBC 0 - 2 /hpf (0-6) 03/25/17 01:40 Ur Epithelial Cells 0 - 2 /hpf (0-5) 03/25/17 01:40 Urine Bacteria Few (NEG) 03/24/17 10:55 Ur Random Creatinine 263 mg/dL 03/24/17 10:53 Ur Random Sodium 113 meq/L 03/24/17 10:53 Urine Opiates Screen Negative (NEGATIVE) 03/25/17 01:40 Urine Methadone Screen Negative (NEGATIVE) 03/25/17 01:40 Ur Barbiturates Screen Negative (NEGATIVE) 03/25/17 01:40 Ur Phencyclidine Scrn Negative (NEGATIVE) 03/25/17 01:40 Ur Amphetamines Screen Negative (NEGATIVE) 03/25/17 01:40 U Benzodiazepines Scrn Negative (NEGATIVE) 03/25/17 01:40 U Oth Cocaine Metabols Positive (NEGATIVE) H 03/25/17 01:40 U Cannabinoids Screen Positive (NEGATIVE) H 03/25/17 01:40 Alcohol, Quantitative < 10 mg/dL (0-10) 03/23/17 23:55 Blood Type B POSITIVE 03/23/17 21:30 Blood Type Confirm B POSITIVE 03/23/17 10:35 Antibody Screen Negative 03/23/17 21:30 BBK History Checked No verified bt 03/23/17 21:30 - Hospital Course Hospital Course: Patient is a 56 year old male with history of alcohol, cocaine/marijuana and tobacco abuse who came for evaluation of Left sided weakness and found to have Acute CVA possibly embolic in nature. He has no underlying known heart disease and no arrhythmia was noted. CT head showed small vessel disease, age indeterminant decreased attenuation, no bleed. He was given TPA upon presentation. No underlying abnormalities was found. Extremity US negative for DVT. Patient was started on asa, plavix and lipitor. Brain MRI showed multiple multifocal acute infactions. Cardiology was consulted and on the case. Echo with bubble study showed no shunting defect. Counseling provided regarding substance abuse. For possible alcohol withdrawal patient was started on librium taper. BP were elevated on admission, patient was started on Nifedipine drip. Drip was discontinued when BP improved. Labetalol, Lisinopril and Norvasc were continued, doses were adjusted as need. Electrolytes were monitored and repleted as needed. PT recommending outpatient PT as patient is currently without insurance. On day of discharge patient was doing well, still with L UE weakness, ambulating with cane and tolerating diet. Meds to beds done for patient medications. Patient instructed to continue PT exercises at home. Patient will follow up with [facility] clinic. All questions and concerns were addressed. Discharge Exam - Head Exam Head Exam: ATRAUMATIC, NORMAL INSPECTION - Eye Exam Eye Exam: EOMI, Normal appearance Pupil Exam: NORMAL ACCOMODATION, PERRL - ENT Exam ENT Exam: Mucous Membranes Moist - Neck Exam Neck exam: Full Rom - Respiratory Exam Respiratory Exam: Clear to PA & Lateral, UNREMARKABLE. absent: Rales, Rhonchi, Wheezes - Cardiovascular Exam Cardiovascular Exam: REGULAR RHYTHM, +S1, +S2 - GI/Abdominal Exam GI & Abdominal Exam: Normal Bowel Sounds, Soft. 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 Atorvastatin [Lipitor] 40 mg PO DIN #14 tab Clopidogrel [Plavix] 75 mg PO DAILY #14 tab Folic Acid 1 mg PO DAILY #14 tab Labetalol [Trandate] 200 mg PO BID #28 tab Lisinopril 30 mg PO DAILY #14 tablet Thiamine [Vitamin B1 Tab] 100 mg PO DAILY #14 tab - Follow Up Plan Condition: CRITICAL Disposition: HOME/ ROUTINE Instructions: Ischemic Stroke (DC), Stroke (DC) Additional Instructions: Patient is clear for discharge home with outpatient physical therapy. Prescriptions sent to [facility] pharmacy. Alcohol and drug cessation advised. Patient to follow up with [facility] clinic within 1 week for continued management. <Yuniel Harrell - Last Filed: 03/29/17 17:30> Provider - Provider Date of Admission: 03/23/17 22:11 Attending physician: Yuniel Harrell MD Time Spent in preparation of Discharge (in minutes): 35 Hospital Course - Lab Results Lab Results: Micro Results 03/23/17 23:40 Nose MRSA Culture (Admit) - Final MRSA NOT DETECTED Most Recent Lab Values WBC 5.3 10^3/ul (4.5-11.0) 03/29/17 06:30 RBC 4.70 10^6/uL (3.5-6.1) 03/29/17 06:30 Hgb 14.3 g/dL (14.0-18.0) 03/29/17 06:30 Hct 42.7 % (42.0-52.0) 03/29/17 06:30 MCV 90.9 fl (80.0-105.0) 03/29/17 06:30 MCH 30.4 pg (25.0-35.0) 03/29/17 06:30 MCHC 33.5 g/dl (31.0-37.0) 03/29/17 06:30 RDW 13.4 % (11.5-14.5) 03/29/17 06:30 Plt Count 291 10^3/uL (120.0-450.0) 03/29/17 06:30 MPV 9.9 fl (7.0-11.0) 03/29/17 06:30 Gran % 48.6 % (50.0-68.0) L 03/29/17 06:30 Lymph % (Auto) 25.3 % (22.0-35.0) 03/29/17 06:30 Karnes % (Auto) 11.6 % (1.0-6.0) H 03/29/17 06:30 Eos % (Auto) 13.0 % (1.5-5.0) H 03/29/17 06:30 Baso % (Auto) 1.5 % (0.0-3.0) 03/29/17 06:30 Gran # 2.55 (1.4-6.5) 03/29/17 06:30 Lymph # 1.3 (1.2-3.4) 03/29/17 06:30 Karnes # 0.6 (0.1-0.6) 03/29/17 06:30 Eos # 0.7 (0.0-0.7) 03/29/17 06:30 Baso # 0.08 K/mm3 (0.0-2.0) 03/29/17 06:30 PT 11.9 Seconds (9.9-11.8) H 03/24/17 05:00 INR 1.10 (0.93-1.08) H 03/24/17 05:00 APTT 26.8 Seconds (23.7-30.8) 03/24/17 05:00 Sodium 142 mmol/L (132-148) 03/29/17 06:30 Potassium 4.0 mmol/L (3.6-5.0) 03/29/17 06:30 Chloride 106 mmol/L (98-107) 03/29/17 06:30 Carbon Dioxide 26 mmol/L (21-33) 03/29/17 06:30 Anion Gap 14 (10-20) 03/29/17 06:30 BUN 13 mg/dL (7-21) 03/29/17 06:30 Creatinine 1.1 mg/dL (0.5-1.4) 03/29/17 06:30 Est GFR ( Amer) > 60 03/29/17 06:30 Est GFR (Non-Af Amer) > 60 03/29/17 06:30 POC Glucose (mg/dL) 145 mg/dL (65-110) H 03/27/17 11:12 Random Glucose 96 mg/dL (70-110) 03/29/17 06:30 Hemoglobin A1c 5.8 % (4.2-6.5) 03/23/17 21:30 Calcium 9.2 mg/dL (8.4-10.5) 03/29/17 06:30 Phosphorus 3.7 mg/dL (2.5-4.5) 03/29/17 06:30 Magnesium 1.8 mg/dL (1.7-2.2) 03/29/17 06:30 Total Bilirubin 0.7 mg/dL (0.2-1.3) 03/28/17 06:10 AST 27 U/L (17-59) 03/28/17 06:10 ALT 25 U/L (7-56) 03/28/17 06:10 Alkaline Phosphatase 43 U/L (38-126) 03/28/17 06:10 Troponin I < 0.01 ng/mL 03/23/17 21:30 Total Protein 6.7 g/dL (5.8-8.3) 03/28/17 06:10 Albumin 3.8 g/dL (3.0-4.8) 03/28/17 06:10 Globulin 2.9 gm/dL 03/28/17 06:10 Albumin/Globulin Ratio 1.3 (1.1-1.8) 03/28/17 06:10 Triglycerides 74 mg/dL (35-160) 03/23/17 21:30 Cholesterol 217 mg/dL (130-200) H 03/23/17 21:30 LDL Cholesterol Direct 105 mg/dL (0-129) 03/23/17 21:30 HDL Cholesterol 118 mg/dL (29-60) H 03/23/17 21:30 Free T4 0.88 ng/dL (0.78-2.19) 03/26/17 05:20 Free T3 pg/mL 3.73 pg/mL (2.77-5.27) 03/26/17 06:30 TSH 3rd Generation 0.95 mIU/mL (0.46-4.68) 03/26/17 05:20 Urine Color Dark yellow (YELLOW) 03/25/17 01:40 Urine Appearance Slight-cloudy (CLEAR) 03/25/17 01:40 Urine pH 6.0 (4.7-8.0) 03/25/17 01:40 Ur Specific Frost 1.010 (1.005-1.035) 03/25/17 01:40 Urine Protein Negative mg/dL (<30 mg/dL) 03/25/17 01:40 Urine Glucose (UA) Negative mg/dL (NEGATIVE) 03/25/17 01:40 Urine Ketones Negative mg/dL (NEGATIVE) 03/25/17 01:40 Urine Blood Small (NEGATIVE) H 03/25/17 01:40 Urine Nitrate Negative (NEGATIVE) 03/25/17 01:40 Urine Bilirubin Negative (NEGATIVE) 03/25/17 01:40 Urine Urobilinogen 0.2 E.U./dL (<1 E.U./dL) 03/25/17 01:40 Ur Leukocyte Esterase Negative Hussein/uL (NEGATIVE) 03/25/17 01:40 Urine RBC 1 - 3 /hpf (0-2) 03/25/17 01:40 Urine WBC 0 - 2 /hpf (0-6) 03/25/17 01:40 Ur Epithelial Cells 0 - 2 /hpf (0-5) 03/25/17 01:40 Urine Bacteria Few (NEG) 03/24/17 10:55 Ur Random Creatinine 263 mg/dL 03/24/17 10:53 Ur Random Sodium 113 meq/L 03/24/17 10:53 Urine Opiates Screen Negative (NEGATIVE) 03/25/17 01:40 Urine Methadone Screen Negative (NEGATIVE) 03/25/17 01:40 Ur Barbiturates Screen Negative (NEGATIVE) 03/25/17 01:40 Ur Phencyclidine Scrn Negative (NEGATIVE) 03/25/17 01:40 Ur Amphetamines Screen Negative (NEGATIVE) 03/25/17 01:40 U Benzodiazepines Scrn Negative (NEGATIVE) 03/25/17 01:40 U Oth Cocaine Metabols Positive (NEGATIVE) H 03/25/17 01:40 U Cannabinoids Screen Positive (NEGATIVE) H 03/25/17 01:40 Alcohol, Quantitative < 10 mg/dL (0-10) 03/23/17 23:55 Blood Type B POSITIVE 03/23/17 21:30 Blood Type Confirm B POSITIVE 03/23/17 10:35 Antibody Screen Negative 03/23/17 21:30 BBK History Checked No verified bt 03/23/17 21:30 Attending/Attestation - Attestation I have personally seen and examined this patient.: Yes I have fully participated in the care of the patient.: Yes I have reviewed all pertinent clinical information, including history, physical exam and plan: Yes Notes (Text): I have seen and examined the patient at bedside. Agree with the above note with the following additions/ exceptions: Briefly this is 56 year old male with history of alcohol, marijuana and tobacco abuse who came for eval of Left sided weakness and found to have Acute ischemic CVA. He has no underlying known heart disease and no arrhythmia was noted. He was given tpa upon presentation. No underlying abnormalities was found. Continue asa, plavix and lipitor. Echo with bubble study showed no shunting defect. Counselling provided regarding substance abuse. BP has improved. Continue lopressor, labetalol, lisinopril and norvasc. Continue librium taper. PT recommended HWS. Discussed with CM who informed us that patient was given information regarding assistance with services and physical therapy as an outpatient. Patient verbalized understanding. Upon discharge patient will follow up with [facility] clinic. Dr Yuniel Harrell
== END 2017-03-29 17:15 | disposition home or self-care (01) | DRG 533 ==
LOC: ED 21:06 → ERH 22:11 → CCU 23:19 → 3RSO 03-27 13:35
PROVIDERS: ADMIT Internal Medicine; ATTEND Hospitalist
DX: I63.411 Cerebral infarction due to embolism of right middle cerebral artery (principal); G81.94 Hemiplegia, unspecified affecting left nondominant side; N17.9 Acute kidney failure, unspecified; F14.10 Cocaine abuse, uncomplicated; E87.6 Hypokalemia; I10 Essential (primary) hypertension; R29.706 NIHSS score 6; F10.10 Alcohol abuse, uncomplicated; F17.210 Nicotine dependence, cigarettes, uncomplicated; F12.10 Cannabis abuse, uncomplicated; E78.00 Pure hypercholesterolemia, unspecified